=== PATIENT | female | born 1940 | race Caucasian/White ===

== ENCOUNTER 2023-03-26 11:11 | Outpatient (CLI) | payer MEDICARE, SELFPAY ==
[2023-03-26 19:26] LABS: Alanine Aminotransferase 23 U/L (6-35); Albumin Level 4.2 g/dL (3.5-5.1); Alkaline Phosphatase 125 U/L (38-126); Anion Gap 4 mmol/L (8-16); Aspartate Amino Transferase 38 U/L (14-36); Bilirubin,Total 0.4 mg/dL (0.2-1.3); Blood Urea Nitrogen 21 mg/dL (7-17); Calcium 9.6 mg/dL (8.4-10.2); Carbon Dioxide 32 mmol/L (22-30); Chloride 103 mmol/L (98-107); Estimated Glomerular Filt Rate 53; Glucose 89 mg/dL (65-110); Potassium 4.4 mmol/L (3.4-5.0); Sodium 139 mmol/L (137-145)
== END 2023-03-26 11:12 | disposition home or self-care (01) ==
LOC: ANHGOSHLAB 11:14
PROVIDERS: PCP Family Medicine; Visit Provider Family Medicine
DX: I12.9 Hypertensive chronic kidney disease with stage 1 through stage 4 chronic kidney disease, or unspecified chronic kidney disease (principal); N18.30 Chronic kidney disease, stage 3 unspecified
CPT/HCPCS: 36415; 80053

== ENCOUNTER 2023-08-31 11:04 | Outpatient (CLI) | payer MEDICARE, SELFPAY ==
[2023-08-31 19:06] LABS: Basophils Absolute Auto 0.1 K/mm3 (0.0-0.1); Basophils Percent Auto 0.7 % (0.2-1.2); Eosinophils Absolute Auto 0.2 K/mm3 (0-0.3); Hematocrit 46.6 % (37.0-47.0); Hemoglobin 14.4 g/dL (12.0-15.0); Immature Granulocyte Absolute 0.04 K/mm3 (0.00-0.031); Immature Granulocyte Percent A 0.4 % (0-0.5); Lymphocytes Percent Auto 22.1 % (18.3-44.2); Mean Corpuscular HGB Conc 30.9 g/dl (32-36); Mean Platelet Volume 12.3 fl (7.4-10.4); Monocytes Absolute Auto 0.8 K/mm3 (0.1-0.6); Monocytes Percent Auto 8.7 % (2.6-8.5); Neutrophils Absolute Auto 6.3 K/mm3 (1.3-6.7); Neutrophils Percent Auto 66.1 % (45.5-73.1); Platelet Count Result 209 k/mm3 (150-375); Red Blood Count 4.96 M/mm3 (4.2-5.4); Red Cell Distribution Width 15.2 % (11.5-14.5); White Blood Count 9.5 K/mm3 (4.5-10.0)
[2023-08-31 19:26] LABS: Alanine Aminotransferase 27 U/L (6-35); Albumin Level 4.5 g/dL (3.5-5.1); Alkaline Phosphatase 114 U/L (38-126); Anion Gap 5 mmol/L (8-16); Aspartate Amino Transferase 37 U/L (14-36); Blood Urea Nitrogen 25 mg/dL (7-17); Calcium 10.3 mg/dL (8.4-10.2); Carbon Dioxide 30 mmol/L (22-30); Chloride 103 mmol/L (98-107); Cholesterol 188 mg/dL (0-200); Estimated Glomerular Filt Rate 53; Glucose 86 mg/dL (65-110); HDL Direct 50 mg/dL; Potassium 4.9 mmol/L (3.4-5.0); Sodium 138 mmol/L (137-145); Triglycerides 119 mg/dL (<150)
[2023-08-31 19:28] LABS: Vitamin D 25 Hydroxy 43.8 ng/mL
[2023-08-31 19:37] LABS: LDL Cholesterol Direct 105 mg/dL
[2023-08-31 20:57] LABS: Vitamin B12 > 1000.0 pg/mL (239-931)
== END 2023-08-31 11:05 | disposition home or self-care (01) ==
LOC: ANHGOSHLAB 11:06
PROVIDERS: PCP Family Medicine; Visit Provider Family Medicine
DX: E55.9 Vitamin D deficiency, unspecified (principal); E78.5 Hyperlipidemia, unspecified; E53.8 Deficiency of other specified B group vitamins; I12.9 Hypertensive chronic kidney disease with stage 1 through stage 4 chronic kidney disease, or unspecified chronic kidney disease; N18.31 Chronic kidney disease, stage 3a
CPT/HCPCS: 36415; 80053; 80061; 82306; 82607; 84443; 85025

== ENCOUNTER 2024-03-03 11:22 | Outpatient (CLI) | payer MEDICARE, SELFPAY ==
--- NOTE | ~2024-03-03 | XR_ITS ---
Left foot Technique: AP, oblique, and lateral views were obtained. Clinical History: Hammertoe Findings: No acute fracture or dislocation is seen. Osseous alignment is anatomic. Joint spaces are p reserved without erosive or degenerative change. Soft tissues are unremarkable. Impression: Unremarkable left foot radiographs. Reviewed, dictated and finalized at [facility]. Impression: Unremarkable left foot radiographs.
== END 2024-03-03 11:23 | disposition home or self-care (01) ==
LOC: ANHIMG 11:23
PROVIDERS: PCP Family Medicine; Visit Provider Podiatrist Foot & Ankle Surgery
DX: M20.42 Other hammer toe(s) (acquired), left foot (principal)
CPT/HCPCS: 73630

== ENCOUNTER 2024-10-10 10:16 | Outpatient (CLI) | payer MEDICARE, SELFPAY ==
[2024-10-10 14:09] LABS: Basophils Absolute Auto 0.1 K/mm3 (0.0-0.1); Eosinophils Absolute Auto 0.2 K/mm3 (0-0.3); Eosinophils Percent Auto 2.2 % (0-4.4); Hemoglobin 14.2 g/dL (12.0-15.0); Immature Granulocyte Absolute 0.03 K/mm3 (0.00-0.031); Immature Granulocyte Percent A 0.4 % (0-0.5); Lymphocytes Absolute Auto 2.05 K/mm3 (0.9-3.2); Lymphocytes Percent Auto 24.8 % (18.3-44.2); Mean Corpuscular HGB Conc 31.6 g/dl (32-36); Mean Corpuscular Hemoglobin 29.4 pg (26-34); Mean Corpuscular Volume 93.2 fl (80-100); Mean Platelet Volume 11.3 fl (7.4-10.4); Monocytes Absolute Auto 0.8 K/mm3 (0.1-0.6); Monocytes Percent Auto 9.7 % (2.6-8.5); Neutrophils Absolute Auto 5.1 K/mm3 (1.3-6.7); Neutrophils Percent Auto 61.9 % (45.5-73.1); Platelet Count Result 232 k/mm3 (150-375); Red Blood Count 4.83 M/mm3 (4.2-5.4); Red Cell Distribution Width 14.6 % (11.5-14.5); White Blood Count 8.3 K/mm3 (4.5-10.0)
[2024-10-10 14:26] LABS: Vitamin D 25 Hydroxy 48.4 ng/mL
[2024-10-10 14:30] LABS: Hemoglobin A1C 6.1 % (<5.7)
[2024-10-10 15:06] LABS: Alanine Aminotransferase 18 U/L (6-35); Albumin Level 4.1 g/dL (3.5-5.1); Alkaline Phosphatase 113 U/L (38-126); Anion Gap 4 mmol/L (4-12); Aspartate Amino Transferase 60 U/L (14-36); Bilirubin,Total 0.9 mg/dL (0.2-1.3); Blood Urea Nitrogen 23 mg/dL (7-17); Calcium 10.2 mg/dL (8.4-10.2); Carbon Dioxide 30 mmol/L (22-30); Chloride 105 mmol/L (98-107); Cholesterol 187 mg/dL (0-200); Estimated Glomerular Filt Rate 43; Glucose 87 mg/dL (65-110); HDL Direct 46 mg/dL; Potassium 4.6 mmol/L (3.4-5.0); Sodium 139 mmol/L (137-145); Triglycerides 99 mg/dL (<150)
[2024-10-10 15:19] LABS: LDL Cholesterol Direct 96 mg/dL
== END 2024-10-10 10:17 | disposition home or self-care (01) ==
LOC: ANHGOSHLAB 10:17
PROVIDERS: PCP Family Medicine; Visit Provider Family Medicine
DX: E78.5 Hyperlipidemia, unspecified (principal); I12.9 Hypertensive chronic kidney disease with stage 1 through stage 4 chronic kidney disease, or unspecified chronic kidney disease; N18.30 Chronic kidney disease, stage 3 unspecified; E55.9 Vitamin D deficiency, unspecified; R73.03 Prediabetes; E53.8 Deficiency of other specified B group vitamins; Z13.29 Encounter for screening for other suspected endocrine disorder
CPT/HCPCS: 36415; 80053; 80061; 82306; 82607; 83036; 84443; 85025

== ENCOUNTER 2025-03-21 11:51 | Outpatient (CLI) | payer MEDICARE, SELFPAY ==
--- OUTSIDE RECORDS SUMMARY | 2025-03-21 11:56 | XMS_ITS | Encounter Summary ---
Author Organization [facility] Address [address] [place] [address] Care Team Providers Care Supervisor Machining Name Role Phone Lazaro Krishna MD Primary Care Provider [phone] Encounter Details Date Type Department Care Team (Late st Contact Info) Description 01/13/2023 Lab Requisition [facility] Derm[facility] [address] [id number] Nathaniel Du MD [address] [place] [address] Social History Tobacco Use Types Packs/Day Years Used Date Smoking Tobacco: Never Assessed Comments Unknown Sex and Gender Information Value Date Recorded Sex Assigned at Not on file Legal Sex Female 12:41 PM CDT Gender Identity Not on file Sexual Orientation Not on file documented as of this encounter Plan of Treatment Not on file documented as of this encounter Procedures Procedure Name Priority Date/Time Associated Diagnosis Comments DERMATOPATHOLOGY Routine 01/12/2023 3:33 AM BARLEY STEEPER documented in this encounter Results * DERMATOPATHOLOGY (01/12/2023 3:33 AM BARLEY STEEPER) Case Report Dermatopathology Report Case: [id number] Authorizing Provider: Nathaniel Du MD Collected: 01/12/2023 03:33 AM Ordering Location: [facility] Received: 01/13/2023 06:03 AM Pathologist: Marjorie Banuelos MD Specimens: A) - Skin, right jaw (ant) B) - Skin, right jaw (post) 5:24 PM [facility] Final Diagnosis Specimen A. SKIN, right jaw (ant): SOLAR LENTIGO (L81.4) (see microscopic description) Specimen B. SKIN, right jaw (post): SOLAR LENTIGO (L81.4) (see microscopic description) 3 5:[address] [facility] DERMATOPATHOLOGY LABORATORY Clinical History A: Lentigo vs LM Path#[id number] B: Lentigo vs LM Path#[id number] 3 5:[address] [facility] DERMATOPATHOLOGY LABORATORY Gross Description Specimen A: Received is one formalin filled container labeled with the patient's name and designated right jaw (ant). The specimen consists of a shave biopsy measuring 7x4x1 mm. Jar 0. Specimen B: Received is one formalin filled container labeled with the patient's name and designated right jaw (post). The specimen consists of a shave biopsy measuring 7x4x1 mm. Jar 0. 3 5:[address] [facility] DERMATOPATHOLOGY LABORATORY Microscopic Description Specimen A. 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 There is a slight increase in epidermal thickness with lentiginous buds of hyperpigmented keratinocytes. The number of melanocytes, highlighted by MART-1/Melan-A immunohistochemical staining, is only mildly increased. In the dermis, there is basophilic degeneration of elastic fibers. Specimen B. 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 There is a slight increase in epidermal thickness with lentiginous buds of hyperpigmented keratinocytes. The number of melanocytes, highlighted by MART-1/Melan-A immunohistochemical staining, is only mildly increased. In the dermis, there is basophilic degeneration of elastic fibers. 3 5:[address] [facility] DERMATOPATHOLOGY LABORATORY Disclaimer An external and internal positive and negative controls are appropriate for the histochemical, immunohistochemical and immunofluorescence stain(s) in this case (if any), except where stated explicitly. The performance characteristics of the stain(s) cited in this report were developed and its performance characteristic determined by the Dermatopathology Laboratory at [facility], directed by Dr. Clementine Kong. These tests need not be, and therefore are not, approved by the [place] Food and Drug Administration. The tests are used for clinical purposes. Billing Codes Specimen Charges Stain Charges 43323 77629 1 1 25364 04824 1 1 3 5:24 PM [facility] Embedded Images 3 5:24 PM [facility] Pathology/Cytology TISSUE SPECIMEN FROM SKIN / Unknown 01/12/2023 3:33 AM BARLEY STEEPER 01/13/2023 6:03 AM BARLEY STEEPER Miscellaneous samples (specimen) TISSUE SPECIMEN FROM SKIN / Unknown 01/12/2023 3:33 AM BARLEY STEEPER 01/13/2023 6:03 AM BARLEY STEEPER us Nathaniel Du MD LAB - PATHOLOGY/CYTOLOGY ORDER RAMON Final Result DERMATOPATHOLOGY LABORATORY [facility] - Department of Dermatology [facility] [address] [place] [address], [address] [phone] documented in this encounter Visit Diagnoses Not on filedocumented in this encounter Care Teams Supervisor Machining Relationship Specialty Start Date End Date Lazaro Krishna MD [address] [place] [address] [place] [address] PCP - General Family Medicine 08/28/17 documented as of this encounter
--- OUTSIDE RECORDS SUMMARY | 2025-03-21 11:56 | XMS_ITS | Continuity of Care Document ---
Author Organization [facility] Address [address] [place] [address] [address] [place] [address] Phone Care Team Providers Care Flakeboard Line Tender Name Role Phone Micah Sullivan DO Unavailable Unavailable Advance Directives Directive Yes / No Effective Date File Name No Information Encounters Encounter Description Practice Location Reason(s) For Visit Diagnoses Date Provider Providers Copied on Encounter [facility], [id number] [place] [address] [address], [place], [place], [id number], [place] tel:[phone] [facility] No Information Nate Cha. [address] [place], [address], [place]. tel: [phone] Family History Family Member Type Diagnosis Age At Onset No Information Payers Payer name Insurance type Covered republican ID Authoriza tion(s) No Information Social History Type Description Quantity Date Captured Comments Sex Female Smoking Status No Information Chief Complaint And Reason For Visit No Information Reason For Referral Reason For Referral No Information History Of Present Illness Encounter Date Complaint History Of Prese nt Illness No Information Functional Status Date Functional Assessmen t No Information Instructions Date Instruction Additional Infor mation No Information Assessments Type Assessment Date No Information Patient Care Teams Name Effective Dates (start - stop) Status Members No Information
--- OUTSIDE RECORDS SUMMARY | 2025-03-21 11:56 | XMS_ITS | Clinical Summary ---
Author Organization [facility] Address [address] [place]: Epic Prelude ADT [place] [address] Care Team Providers Care Finishing Supervisor Name Role Phone Unavailable Primary Care Provider Unavailabl e Immunizations Immunization Administration Dates Next Due (COMIRNATY)(12 YR UP) COVID- 19 VACCINE, MRNA, SPIKE PROTEIN, LNP, RINA(PF) 30 MCG/0.3 ML IM SUSP 08/17/2024 (SHINGRIX)(50 YRS UP) ZOSTER VACCINE RECOMBINANT, 0.5 ML, IM 02/16/2024,11/13/2023 INFLUENZA VACCINE HIGH DOSE QUADRIVALENT 65 YR UP PF IM 07/27/2023 INFLUENZA VACCINE HIGH DOSE TRIVALENT SPLIT VIRUS, (65 YR UP), 0.5ML (PF), IM 08/17/2024 Social History Tobacco Use Types Packs/Day Years Used Date Smoking Tobacco: Never Assessed Comments Unknown Sex and Gender Information Value Date Recorded Sex Assigned at Not on file Legal Sex Female 3:27 PM CDT Gender Identity Not on file Sexual Orientation Not on file Plan of Treatment Health Maintenance Due Date Last Done Comments DTAP/TDAP/TD VACCINES (1 - Tdap) 1958 PNEUMOCOCCAL VACCINE 50+ YEA RS (1 of 1 - PCV) 1989 OSTEOPOROSIS SCREENING 2004 RSV VACCINE (60+ or ) (1 - 1-dose 75+ series) 2014 COVID-19 Vaccine (2 - season) 02/15/202507/2024 ZOSTER VACCINE Completed 02/16/2024, 11/13/2023 INFLUENZA VACCINE Completed 08/17/2024, 07/27/2023 Insurance RX [employer] Medicare Part B RX [facility] [employer] Medicare Part D RX [facility] Medicare Part B
--- OUTSIDE RECORDS SUMMARY | 2025-03-21 11:56 | XMS_ITS | Clinical Summary ---
Author Organization [facility] [employer] Address [address] [place] [address] Care Team Providers Care Apparel Machinery Instructor Name Role Phone Lazaro Krishna MD Primary Care Provider [phone] Source Comments [facility] [employer],non-owned Affiliates and Associated Physician Practices is amultiple site organization consisting of ambulatory clinics and hospital sitesin [place], [place], [place] and [place]. This disclosure is being madepursuant to the Care Everywhere program and may not contain all information available regarding this patient. Last updated 18.[facility] [employer] Allergies No known active allergies Immunizations Immunization Administration Dates Next Due INFLUENZA VACCINE, HIGH-DOSE , QUADR. (FLUZONE HIGH-DOSE QUADRIVALENT; 65Y+), 0.7 ML ([id number]) 08/28/2017 Social History Tobacco Use Types Packs/Day Years Used Date Smoking Tobacco: Never Assessed Comments Unknown Sex and Gender Information Value Date Recorded Sex Assigned at Not on file Legal Sex Female 12:41 PM CDT Gender Identity Not on file Sexual Orientation Not on file Plan of Treatment Health Maintenance Due Date Last Done Comments BONE DENSITY TESTING 1940 MEDICARE AWV 12 MONTHS 1940 DTAP/TDAP/TD VACCINES (1 - Tdap) 1958 PNEUMOCOCCAL VACCINE 50+ (1 of 1 - PCV) 1989 ZOSTER VACCINE (1 of 2) 1989 Respiratory Syncytial Virus (RSV) Vaccine Pt: or over 60 yrs (1 - 1-dose 75+ series) 2014 COVID-19 VACCINE ( - 2023-2 5 season) 2024 DEPRESSION SCREENING 11/09/2024 INFLUENZA VACCINE (Season Ended) 2025 08/28/20 17 HEPATITIS B VACCINE Aged Out No longe r eligible based on patient's age to complete this topic HIB VACCINE Aged Out No longer eligi ble based on patient's age to complete this topic HPV VACCINE Aged Out No longer eligi ble based on patient's age to complete this topic MENINGOCOCCAL (Group B) VACC INE SHARED DECISION-MAKING Aged Out No longer eligibl e based on patient's age to complete this topic MENINGOCOCCAL GROUPS A/C/Y/W VACCINE Aged Out No longer eligible b ased on patient's age to complete this topic Insurance MEDICARE MEDICARE [facility] Care Teams Apparel Machinery Instructor Relationship Specialty Start Date End Date Lazaro Krishna MD [address] [place] [address] PCP - General Family Medicine 08/28/17
[2025-03-21 13:30] LABS: Alanine Aminotransferase 24 U/L (6-35); Albumin Level 4.3 g/dL (3.5-5.1); Alkaline Phosphatase 121 U/L (38-126); Anion Gap 8 mmol/L (4-12); Aspartate Amino Transferase 52 U/L (14-36); Bilirubin,Total 0.7 mg/dL (0.2-1.3); Blood Urea Nitrogen 41 mg/dL (7-17); Carbon Dioxide 29 mmol/L (22-30); Chloride 102 mmol/L (98-107); Estimated Glomerular Filt Rate 40; Glucose 104 mg/dL (65-110); Potassium 4.3 mmol/L (3.4-5.0); Sodium 139 mmol/L (137-145)
[2025-03-21 13:42] LABS: Hemoglobin A1C 5.8 % (<5.7)
== END 2025-03-21 11:52 | disposition home or self-care (01) ==
PROVIDERS: PCP Family Medicine; Visit Provider Family Medicine
DX: I10 Essential (primary) hypertension (principal); R73.03 Prediabetes
CPT/HCPCS: 36415; 80053; 83036

== ENCOUNTER 2025-07-11 17:33 | Inpatient (IN) | payer MEDICARE, SELFPAY ==
[2025-07-11] VITALS (42 sets, daily range): BP systolic 102–141; BP diastolic 57–93; PULSE 66–86; RESP 11–23; TEMP 36.4; O2SAT 90–100
--- NOTE | ~2025-07-11 | XR_ITS ---
XR chest 1V portable 07/11/2025 17:51 Indication: Weakness and dizziness Procedure: AP portable chest Comparison: No prior studies for comparison. Findings: There is a hiatal hernia. There are bilateral interstitial infiltrates, left greater than right. No pleural effusion or pneumothorax. No acute osseous abnormality. There is atherosclerosis of the aorta. Impression: 1: Bilateral interstitial infiltrates of the mid and lower lungs, left greater than right. Differential diagnosis includes mild edema and pneumonia. Reviewed, dictated and finalized at location O. Impression: 1: Bilateral interstitial infiltrates of the mid and lower lungs, left greater than right. Differential diagnosis includes mild edema and pneumonia.
--- NOTE | ~2025-07-11 | CT_ITS ---
EXAMINATION: CT brain wo con DATE: 07/11/2025 20:15 INDICATION: Headache TECHNIQUE: Computed tomography (CT) of the head was performed without intravenous contrast. The dose-length product was 605.33 mGy-cm. Automated exposure control and iterative reconstruction technique were employed. COMPARISON: None FINDINGS: Generalized atrophy. There are scattered mild periventricular and subcortical white matter changes, most likely related to small vessel ischemic disease (microangiopathy). Small chronic lacunar infarction body of the right caudate nucleus. No ventriculomegaly or midline shift. Basilar cisterns are patent. There is intracranial atherosclerosis. No acute infarction, hemorrhage, mass or mass effect. Small mucous retention cyst left maxillary sinus. Mastoids are pneumatized. No depressed skull fractures. IMPRESSION: 1. No acute intracranial abnormality. Reviewed, dictated and finalized at location O.
--- NOTE | ~2025-07-11 | CT_ITS ---
EXAMINATION: CTA chest PE protocol DATE: 07/11/2025 22:23 INDICATION: Dyspnea and dizziness TECHNIQUE: Computed tomography (CT) pulmonary angiogram of the chest was performed with 100 mL Omnipaque-350 intravenous contrast. Additional 3D reconstructions utilizing coronal maximum intensity projection (MIP) were performed. Automated exposure control and iterative reconstruction technique were employed. The dose-length product was 440.49 mGy-cm. COMPARISON: None FINDINGS: There are multiple pulmonary arterial filling defects including in the right upper lobar pulmonary artery extending to the anterior and posterior segmental bronchi in the right middle lobar pulmonary artery extending into both the medial and lateral segmental pulmonary arteries, in the right lower lobar and anterobasilar segment of pulmonary artery, in the inferior segmental pulmonary artery of the lingula and one of the subsegmental branch of the anterior basilar segment of the left lower lobe. There is compressive atelectasis at the medial aspect of the bilateral lower lobes along side the margins of a large sliding- type hiatal hernia which contains the majority the stomach. There is mild dependent atelectasis in the bilateral lower lobes. Mosaic attenuation throughout the remainder of the lungs seen only on one of the sequences of imaging which results from expiratory phase of imaging with subsegmental regions of more lucent air trapping related to small airway disease. No pleural effusion. Heart size is normal. No leftward bowing of the ventricular septum to suggest right heart strain. Atherosclerotic coronary artery calcification. No pericardial effusion. Thoracic aorta is normal in caliber with no dissection. Multinodular goiter with 1.6 cm hypodense left thyroid nodule. No pathologically enlarged thoracic lymphadenopathy. Parapelvic cysts in the left kidney. Moderate to severe thoracic and lower cervical spondylosis. IMPRESSION: 1. Multiple pulmonary emboli including an the right upper, middle and lower lobes, left lower lobe and lingula with moderate clot burden but without evident right heart strain. Per preliminary report by [employer] the findings were confirmed Verified receipt with VÍCTOR Fierro, Going to LOBITO Parnell at 07/12/2025 at 2:18 AM. 2. Large hiatal hernia. Reviewed, dictated and finalized at location A. IMPRESSION: 1. Multiple pulmonary emboli including an the right upper, middle and lower lob es, left lower lobe and lingula with moderate clot burden but without evident r ight heart strain. Per preliminary report by [employer] the findings were confirme d Verified receipt with ER clerk Fierro, Going to LOBITO Parnell at 07/12/2025 at 2:1 8 AM. 2. Large hiatal hernia.
--- NOTE | ~2025-07-11 | US_ITS ---
EXAMINATION: US venous doppler [facility] DATE: 07/12/2025 12:53 INDICATION: Pulmonary embolism TECHNIQUE: Grayscale ultrasound images without and with compression and Doppler ultrasound images of the bilateral lower extremity veins were obtained. COMPARISON: None. FINDINGS: The visualized portions of right common femoral vein, profunda (deep) femoral vein, femoral vein, popliteal vein, posterior tibial veins, peroneal veins, gastrocnemius vein and proximal to mid greater saphenous vein are patent. Small right Moreno's cyst measuring up to 2.6 cm in maximal length. The visualized portions of left common femoral vein, profunda (deep) femoral vein, femoral vein, popliteal vein, posterior tibial veins, peroneal veins, gastrocnemius vein and proximal to mid greater saphenous vein are patent. Small left Moreno's cyst measuring up to 2.7 cm in maximal length. IMPRESSION: 1. No deep venous thrombosis in either lower limb. 2. Small bilateral Moreno's cysts. Reviewed, dictated and finalized at location A.
--- NOTE | 2025-07-11 17:36 | ECG_ITS ---
Test Date: 2025-07-11 17:39:03 Measurements Intervals [place] Rate: 74 P: 0 WA: 0 QRS: 25 QRSD: 82 T: 32 QT: 366 QTc: 407 Interpretive Statements SINUS RHYTHM LOW QRS VOLTAGE IN PRECORDIAL LEADS [QRS DEFLECTION < 1.0 mV IN CHEST LEADS] NONSPECIFIC ST AND T-WAVE ABNORMALITY SON ABNORMAL ECG No previous ECG available for comparison Electronically Signed On 07-12-2025 11:06:57 CDT by Jose R Nicholson M.D.
[2025-07-11 18:15] LABS: Hematocrit 38.2 % (37.0-47.0); Hemoglobin 12.4 g/dL (12.0-15.0); Immature Granulocyte Percent A 0.5 % (0-0.5); Lymphocytes Absolute Auto 1.31 K/mm3 (0.9-3.2); Mean Corpuscular HGB Conc 32.5 g/dl (32-36); Mean Corpuscular Hemoglobin 29.5 pg (26-34); Mean Corpuscular Volume 91.0 fl (80-100); Nucleated Red Blood Cells Absolute Auto 0.000 K/mm3 (0.0-0.012); Nucleated Red Blood Cells Perc 0.0 % (0.0-0.2); Platelet Count Result 196 k/mm3 (150-375); Red Blood Count 4.20 M/mm3 (4.2-5.4); White Blood Count 16.4 K/mm3 (4.5-10.0)
[2025-07-11 18:25] LABS: Alanine Aminotransferase 22 U/L (6-35); Albumin Level 3.9 g/dL (3.5-5.1); Alkaline Phosphatase 127 U/L (38-126); Anion Gap 8 mmol/L (4-12); Aspartate Amino Transferase 29 U/L (14-36); Bilirubin,Total 0.4 mg/dL (0.2-1.3); Blood Urea Nitrogen 37 mg/dL (7-17); Calcium 10.2 mg/dL (8.4-10.2); Carbon Dioxide 23 mmol/L (22-30); Chloride 108 mmol/L (98-107); Estimated CRCL calculation 28 ml/min; Estimated Glomerular Filt Rate 33; Glucose 177 mg/dL (65-110); Potassium 4.4 mmol/L (3.4-5.0); Sodium 139 mmol/L (137-145); Total Protein 7.1 g/dL (6.3-8.2)
--- NOTE | 2025-07-11 18:34 | ED_ITS ---
HPI - Dizziness General Chief Complaint: Dizziness <Wendy Myers PA-C - Last Filed: 07/12/25 01:56> Stated Complaint: dizzy <Wendy Myers PA-C - Last Filed: 07/12/25 01:56> Time Seen by Provider: 07/11/25 18:19 <Wendy Myers PA-C - Last Filed: 07/12/25 01:56> History of Present Illness HPI Narrative: 84-year-old female with history of CKD, hypertension, dyslipidemia, anxiety presents to the emergency department via EMS with son and grandson at bedside for dizziness, headache, generalized weakness, malaise, nausea and vomiting that started this afternoon. Patient states she woke up in her normal state of health. She went to lunch with her friends and shortly after lunch around 1:00 p.m. started to become nauseous. She states she then developed a frontal headache with associated vomiting, chills, malaise, weakness. She contacted her family called EMS and transported the patient to the ED. EMS reports blood pressure was low at 80/60 and blood sugar was 180. Patient states the headache is in the frontal aspect and feels like a ?sinus headache?. She states the dizziness is better when she is lying still and worse with sudden movements. She also reports a productive cough with sputum and some shortness of breath. She denies chest pain, lower extremity edema, abdominal pain, diarrhea, fever, is dysuria or hematuria. Denies history of VTE, hemoptysis, recent surgeries or hospitalizations. <Wendy Myers PA-C - Last Filed: 07/12/25 01:56> Related Data Home Medications: Home Medications ?Medication ?Instructions ?Recorded ?Confirmed ?Last Taken ?Type cholecalciferol (vitamin D3) 50 50 mcg PO DAILY 03/21/25 Unknown History mcg (2,000 unit) tablet cyanocobalamin (vitamin B-12) 1,000 mcg sublingual .QO D 03/21/25 03/21/25 Unknown History 1,000 mcg sublingual tablet <Wendy Myers PA-C - Last Filed: 07/12/25 01:56> Allergies/Adverse Reactions: Allergies Allergy/AdvReac Type Severity Reaction Status Date / Time No Known Allergies Allergy Unknown Verified 07/11/25 17:37 <Wendy Myers PA-C - Last Filed: 07/12/25 01:56> Review of Systems 2 Review of Systems: All systems reviewed & are unremarkable except as noted in HPI and below <Wendy Myers PA-C - Last Filed: 07/12/25 01:56> PMFSH Past Medical History Medical History: Medical History Prediabetes Rosacea, unspecified Vitamin B12 deficiency Anxiety Vitamin D deficiency CKD (chronic kidney disease) stage 3, GFR 30-59 ml/min Dyslipidemia Environmental allergies Essential (primary) hypertension <Wendy Myers PA-C - Last Filed: 07/12/25 01:56> Surgical History Surgical History: Surgical History History of tonsillectomy <Wendy Myers PA-C - Last Filed: 07/12/25 01:56> Family History Family History: Family History Father Hypertension Cerebrovascular accident Son Clogged artery (heart) <Wendy Myers PA-C - Last Filed: 07/12/25 01:56> Social History Social History: Social History Smoking status: Never smoker Second hand tobacco smoke exposure: No Alcohol intake: never Substance use: never Substance use type: does not use Lack of Transportation: No Lack of Food: Sometimes True Current Housing: I Have Housing Difficulty Paying Gas/Electric Bills: No Difficulty Paying for Meds: No Currently Unemployed: No Education: Associate Degree Difficulty w/ Childcare or Family Care: No Occupation/Education: retired <Wendy Myers PA-C - Last Filed: 07/12/25 01:56> Exam 2 Narrative: GENERAL: Well-appearing, well-nourished, and in no acute distress. HEAD: Normocephalic, atraumatic. EYES: PERRLA and EOMI. Unidirectional horizontal nystagmus ENT: Nares clear, no rhinorrhea or epistaxis. Mucous membranes moist. Left TM is gruber nonbulging with normal canal. Right TM with cerumen, TM is not visualized. NECK: Supple. CHEST: Clear to auscultation. No respiratory distress. HEART: Regular rate and rhythm. No murmur heard. Normal peripheral pulses. ABDOMEN: Soft, nontender, nondistended, normal active bowel sounds. No rebound, guarding rigidity. EXTREMITIES: Normal range of motion. No edema. Negative Homans bilaterally SKIN: Warm, dry, no rash. NEURO: No focal deficits. Alert and oriented x4. Cranial nerves 2-12 intact. Strength 5/5 in BUE and BLE. Sensation intact throughout. Normal [id number]. No pronator drift. <Wendy Myers PA-C - Last Filed: 07/12/25 01:56> Course LIP READING TEACHER/PA Physician Supervision This visit was performed by both a physician and an APC. I performed all aspects of the MDM as documented. <Rebel Neil MD - Last Filed: 07/12/25 02:27> Vital Signs Vital signs: Vital Signs Temperature 97.5 F L 07/11/25 17:28 Pulse Rate 75 07/11/25 17:28 Respiratory Rate 17 07/11/25 17:28 Blood Pressure 114/62 07/11/25 17:28 Pulse Oximetry 100 07/11/25 17:28 Oxygen Delivery Room Air 07/11/25 17:28 Temperature 97.5 F L 07/11/25 17:28 Pulse Rate 79 07/12/25 01:01 Respiratory Rate 19 07/12/25 01:01 Blood Pressure 115/76 07/12/25 01:01 Pulse Oximetry 98 07/11/25 23:46 Oxygen Delivery Room Air 07/11/25 17:28 <Wendy Myers PA-C - Last Filed: 07/12/25 01:56> Vital Signs Temperature 97.5 F L 07/11/25 17:28 Pulse Rate 75 07/11/25 17:28 Respiratory Rate 17 07/11/25 17:28 Blood Pressure 114/62 07/11/25 17:28 Pulse Oximetry 100 07/11/25 17:28 Oxygen Delivery Room Air 07/11/25 17:28 Temperature 97.5 F L 07/11/25 17:28 Pulse Rate 79 07/12/25 01:01 Respiratory Rate 19 07/12/25 01:01 Blood Pressure 115/76 07/12/25 01:01 Pulse Oximetry 98 07/11/25 23:46 Oxygen Delivery Room Air 07/11/25 17:28 <Rebel Neil MD - Last Filed: 07/12/25 02:27> MDM - Dizziness MDM Narrative Medical decision making narrative: 84-year-old female presents emergency department for dizziness, generalized weakness, malaise, chills, cough, nausea and vomiting that started around 1:00 p.m. today. See HPI for further history. Patient found to be hypotensive by EMS at 86/60 fluid in route. On arrival to the ED patient's vital signs are stable blood pressure 114/62. She is afebrile and nontoxic appearing. Exam is significant for the above. No focal neurologic deficits. CBC with leukocytosis of 16.4. Chemistries with mildly elevated creatinine of 1.51 BUN of 37, most recent creatinine in March 2025 was 1.27. ProBNP is within normal limits. UA indicative of UTI with 21-50 white blood cells and 2+ leuk esterase. Urine culture is pending. Viral swabs negative. EKG shows sinus rhythm with first-degree AV block, normal QRS duration, normal QTC, poor baseline, however no significant ST elevations or depressions. Troponin is undetectable. D-dimer elevated 1.97, therefore CTA chest PE obtained which does show a small thrombus in the right lower lobe in segmental branch. CT brain shows no acute intracranial findings. Patient and son at bedside updated on results. Patient received IV fluids and meclizine with improvement in her dizziness. Her blood pressures remained stable. She was started on heparin for PE and Rocephin for UTI. Plan to admit to the hospitalist for further evaluation and management. Patient and son are agreeable to this. Discussed case with hospitalist LIP READING TEACHER, Erica, who agrees to admission. <Wendy Myers PA-C - Last Filed: 07/12/25 01:56> Lab Data Result diagrams: 07/11/25 18:08 07/11/25 18:08 <Wendy Myers PA-C - Last Filed: 07/12/25 01:56> Labs: Lab Results 07/11/25 07/11/25 07/11/25 Range/Units 17:38 18:08 20:34 WBC 16.4 H (4.5-10.0) K/mm3 RBC 4.20 (4.2-5.4) M/mm3 Hgb 12.4 (12.0-15.0) g/dL Hct 38.2 (37.0-47.0) % MCV 91.0 (80-100) fl MCH 29.5 (26-34) pg MCHC 32.5 (32-36) g/dl RDW 14.2 (11.5-14.5) % Plt Count 196 (150-375) k/mm3 MPV 10.7 H (7.4-10.4) fl Immature Gran % (Auto) 0.5 (0-0.5) % Neut % (Auto) 84.5 H (45.5-73.1) % Lymph % (Auto) 8.0 L (18.3-44.2) % [place] % (Auto) 5.8 (2.6-8.5) % Eos % (Auto) 0.7 (0-4.4) % Baso % (Auto) 0.5 (0.2-1.2) % Lymph # (Auto) 1.31 (0.9-3.2) K/mm3 [place] # (Auto) 1.0 H (0.1-0.6) K/mm3 Eos # (Auto) 0.1 (0-0.3) K/mm3 Baso # (Auto) 0.1 (0.0-0.1) K/mm3 Abs Immat Gran (auto) 0.09 H (0.00-0.031) K/mm3 Absolute Neuts (auto) 13.9 H (1.3-6.7) K/mm3 Absolute Nucleated RBC 0.000 (0.0-0.012) K/mm3 Nucleated RBC % 0.0 (0.0-0.2) % PT (11.1-14.7) Seconds INR APTT (22.3-36.8) Seconds D-Dimer (<0.48) ug/mL Sodium 139 (137-145) mmol/L Potassium 4.4 (3.4-5.0) mmol/L Chloride 108 H (98-107) mmol/L Carbon Dioxide 23 (22-30) mmol/L Anion Gap 8 (4-12) mmol/L BUN 37 H (7-17) mg/dL Creatinine 1.51 H (0.7-1.0) mg/dL Estim Creat Clear Calc 28 ml/min Estimated GFR 33 L (59 - ) Glucose 177 H (65-110) mg/dL POC Capillary Glucose 159 H (65-105) mg/dl Lactic Acid (0.7-2.0) mmol/L Calcium 10.2 (8.4-10.2) mg/dL Magnesium 1.6 (1.6-2.3) mg/dL Total Bilirubin 0.4 (0.2-1.3) mg/dL AST 29 (14-36) U/L ALT 22 (6-35) U/L Alkaline Phosphatase 127 H (38-126) U/L Troponin I < 0.012 (0.000-0.034) ng/mL NT-Pro-B Natriuret Pep 141 H (19.9-100) pg/mL Total Protein 7.1 (6.3-8.2) g/dL Albumin 3.9 (3.5-5.1) g/dL Lipase 259 (23-300) U/L Urine Color Yellow (Yellow) Urine Appearance Clear (Clear) Urine pH 6.0 (5.0-9.0) Ur Specific [place] 1.018 (1.001-1.035) Urine Protein Negative (Negative) mg/dL Urine Glucose (UA) Trace H (Negative) mg/dL Urine Ketones Negative (Negative) mg/dL Ur Blood (Man) Negative (Negative) Urine Nitrate Negative (Negative) Urine Bilirubin Negative (Negative) Urine Urobilinogen 0.2 (<2.0) mg/dL Leukocyte Esterase Rfl 2+ H (Negative) ISABELLA/UL Urine RBC 0-2 (0-2) /hpf Urine WBC 21-50 H (0-3) /hpf Ur Squamous Epith Cells None seen (Few) /hpf Urine Bacteria None seen /hpf Urine Casts 3-5 Influenza A (RT-PCR) Negative (Negative) Influenza B (RT-PCR) Negative (Negative) RSV (RT-PCR) Negative (Negative) SARS-CoV-2 RNA (RT-PCR) Negative (Negative) 07/11/25 Range/Units 21:02 WBC (4.5-10.0) K/mm3 RBC (4.2-5.4) M/mm3 Hgb (12.0-15.0) g/dL Hct (37.0-47.0) % MCV (80-100) fl MCH (26-34) pg MCHC (32-36) g/dl RDW (11.5-14.5) % Plt Count (150-375) k/mm3 MPV (7.4-10.4) fl Immature Gran % (Auto) (0-0.5) % Neut % (Auto) (45.5-73.1) % Lymph % (Auto) (18.3-44.2) % [place] % (Auto) (2.6-8.5) % Eos % (Auto) (0-4.4) % Baso % (Auto) (0.2-1.2) % Lymph # (Auto) (0.9-3.2) K/mm3 [place] # (Auto) (0.1-0.6) K/mm3 Eos # (Auto) (0-0.3) K/mm3 Baso # (Auto) (0.0-0.1) K/mm3 Abs Immat Gran (auto) (0.00-0.031) K/mm3 Absolute Neuts (auto) (1.3-6.7) K/mm3 Absolute Nucleated RBC (0.0-0.012) K/mm3 Nucleated RBC % (0.0-0.2) % PT 14.2 (11.1-14.7) Seconds INR 1.1 APTT 31.8 (22.3-36.8) Seconds D-Dimer 1.97 H (<0.48) ug/mL Sodium (137-145) mmol/L Potassium (3.4-5.0) mmol/L Chloride (98-107) mmol/L Carbon Dioxide (22-30) mmol/L Anion Gap (4-12) mmol/L BUN (7-17) mg/dL Creatinine (0.7-1.0) mg/dL Estim Creat Clear Calc ml/min Estimated GFR (59 - ) Glucose (65-110) mg/dL POC Capillary Glucose (65-105) mg/dl Lactic Acid 1.1 (0.7-2.0) mmol/L Calcium (8.4-10.2) mg/dL Magnesium (1.6-2.3) mg/dL Total Bilirubin (0.2-1.3) mg/dL AST (14-36) U/L ALT (6-35) U/L Alkaline Phosphatase (38-126) U/L Troponin I (0.000-0.034) ng/mL NT-Pro-B Natriuret Pep (19.9-100) pg/mL Total Protein (6.3-8.2) g/dL Albumin (3.5-5.1) g/dL Lipase (23-300) U/L Urine Color (Yellow) Urine Appearance (Clear) Urine pH (5.0-9.0) Ur Specific [place] (1.001-1.035) Urine Protein (Negative) mg/dL Urine Glucose (UA) (Negative) mg/dL Urine Ketones (Negative) mg/dL Ur Blood (Man) (Negative) Urine Nitrate (Negative) Urine Bilirubin (Negative) Urine Urobilinogen (<2.0) mg/dL Leukocyte Esterase Rfl (Negative) ISABELLA/UL Urine RBC (0-2) /hpf Urine WBC (0-3) /hpf Ur Squamous Epith Cells (Few) /hpf Urine Bacteria /hpf Urine Casts Influenza A (RT-PCR) (Negative) Influenza B (RT-PCR) (Negative) RSV (RT-PCR) (Negative) SARS-CoV-2 RNA (RT-PCR) (Negative) <Wendy Myers PA-C - Last Filed: 07/12/25 01:56> Lab Results 07/11/25 07/11/25 07/11/25 Range/Units 17:38 18:08 20:34 WBC 16.4 H (4.5-10.0) K/mm3 RBC 4.20 (4.2-5.4) M/mm3 Hgb 12.4 (12.0-15.0) g/dL Hct 38.2 (37.0-47.0) % MCV 91.0 (80-100) fl MCH 29.5 (26-34) pg MCHC 32.5 (32-36) g/dl RDW 14.2 (11.5-14.5) % Plt Count 196 (150-375) k/mm3 MPV 10.7 H (7.4-10.4) fl Immature Gran % (Auto) 0.5 (0-0.5) % Neut % (Auto) 84.5 H (45.5-73.1) % Lymph % (Auto) 8.0 L (18.3-44.2) % [place] % (Auto) 5.8 (2.6-8.5) % Eos % (Auto) 0.7 (0-4.4) % Baso % (Auto) 0.5 (0.2-1.2) % Lymph # (Auto) 1.31 (0.9-3.2) K/mm3 [place] # (Auto) 1.0 H (0.1-0.6) K/mm3 Eos # (Auto) 0.1 (0-0.3) K/mm3 Baso # (Auto) 0.1 (0.0-0.1) K/mm3 Abs Immat Gran (auto) 0.09 H (0.00-0.031) K/mm3 Absolute Neuts (auto) 13.9 H (1.3-6.7) K/mm3 Absolute Nucleated RBC 0.000 (0.0-0.012) K/mm3 Nucleated RBC % 0.0 (0.0-0.2) % PT (11.1-14.7) Seconds INR APTT (22.3-36.8) Seconds D-Dimer (<0.48) ug/mL Sodium 139 (137-145) mmol/L Potassium 4.4 (3.4-5.0) mmol/L Chloride 108 H (98-107) mmol/L Carbon Dioxide 23 (22-30) mmol/L Anion Gap 8 (4-12) mmol/L BUN 37 H (7-17) mg/dL Creatinine 1.51 H (0.7-1.0) mg/dL Estim Creat Clear Calc 28 ml/min Estimated GFR 33 L (59 - ) Glucose 177 H (65-110) mg/dL POC Capillary Glucose 159 H (65-105) mg/dl Lactic Acid (0.7-2.0) mmol/L Calcium 10.2 (8.4-10.2) mg/dL Magnesium 1.6 (1.6-2.3) mg/dL Total Bilirubin 0.4 (0.2-1.3) mg/dL AST 29 (14-36) U/L ALT 22 (6-35) U/L Alkaline Phosphatase 127 H (38-126) U/L Troponin I < 0.012 (0.000-0.034) ng/mL NT-Pro-B Natriuret Pep 141 H (19.9-100) pg/mL Total Protein 7.1 (6.3-8.2) g/dL Albumin 3.9 (3.5-5.1) g/dL Lipase 259 (23-300) U/L Urine Color Yellow (Yellow) Urine Appearance Clear (Clear) Urine pH 6.0 (5.0-9.0) Ur Specific [place] 1.018 (1.001-1.035) Urine Protein Negative (Negative) mg/dL Urine Glucose (UA) Trace H (Negative) mg/dL Urine Ketones Negative (Negative) mg/dL Ur Blood (Man) Negative (Negative) Urine Nitrate Negative (Negative) Urine Bilirubin Negative (Negative) Urine Urobilinogen 0.2 (<2.0) mg/dL Leukocyte Esterase Rfl 2+ H (Negative) ISABELLA/UL Urine RBC 0-2 (0-2) /hpf Urine WBC 21-50 H (0-3) /hpf Ur Squamous Epith Cells None seen (Few) /hpf Urine Bacteria None seen /hpf Urine Casts 3-5 Influenza A (RT-PCR) Negative (Negative) Influenza B (RT-PCR) Negative (Negative) RSV (RT-PCR) Negative (Negative) SARS-CoV-2 RNA (RT-PCR) Negative (Negative) 07/11/25 Range/Units 21:02 WBC (4.5-10.0) K/mm3 RBC (4.2-5.4) M/mm3 Hgb (12.0-15.0) g/dL Hct (37.0-47.0) % MCV (80-100) fl MCH (26-34) pg MCHC (32-36) g/dl RDW (11.5-14.5) % Plt Count (150-375) k/mm3 MPV (7.4-10.4) fl Immature Gran % (Auto) (0-0.5) % Neut % (Auto) (45.5-73.1) % Lymph % (Auto) (18.3-44.2) % [place] % (Auto) (2.6-8.5) % Eos % (Auto) (0-4.4) % Baso % (Auto) (0.2-1.2) % Lymph # (Auto) (0.9-3.2) K/mm3 [place] # (Auto) (0.1-0.6) K/mm3 Eos # (Auto) (0-0.3) K/mm3 Baso # (Auto) (0.0-0.1) K/mm3 Abs Immat Gran (auto) (0.00-0.031) K/mm3 Absolute Neuts (auto) (1.3-6.7) K/mm3 Absolute Nucleated RBC (0.0-0.012) K/mm3 Nucleated RBC % (0.0-0.2) % PT 14.2 (11.1-14.7) Seconds INR 1.1 APTT 31.8 (22.3-36.8) Seconds D-Dimer 1.97 H (<0.48) ug/mL Sodium (137-145) mmol/L Potassium (3.4-5.0) mmol/L Chloride (98-107) mmol/L Carbon Dioxide (22-30) mmol/L Anion Gap (4-12) mmol/L BUN (7-17) mg/dL Creatinine (0.7-1.0) mg/dL Estim Creat Clear Calc ml/min Estimated GFR (59 - ) Glucose (65-110) mg/dL POC Capillary Glucose (65-105) mg/dl Lactic Acid 1.1 (0.7-2.0) mmol/L Calcium (8.4-10.2) mg/dL Magnesium (1.6-2.3) mg/dL Total Bilirubin (0.2-1.3) mg/dL AST (14-36) U/L ALT (6-35) U/L Alkaline Phosphatase (38-126) U/L Troponin I (0.000-0.034) ng/mL NT-Pro-B Natriuret Pep (19.9-100) pg/mL Total Protein (6.3-8.2) g/dL Albumin (3.5-5.1) g/dL Lipase (23-300) U/L Urine Color (Yellow) Urine Appearance (Clear) Urine pH (5.0-9.0) Ur Specific [place] (1.001-1.035) Urine Protein (Negative) mg/dL Urine Glucose (UA) (Negative) mg/dL Urine Ketones (Negative) mg/dL Ur Blood (Man) (Negative) Urine Nitrate (Negative) Urine Bilirubin (Negative) Urine Urobilinogen (<2.0) mg/dL Leukocyte Esterase Rfl (Negative) ISABELLA/UL Urine RBC (0-2) /hpf Urine WBC (0-3) /hpf Ur Squamous Epith Cells (Few) /hpf Urine Bacteria /hpf Urine Casts Influenza A (RT-PCR) (Negative) Influenza B (RT-PCR) (Negative) RSV (RT-PCR) (Negative) SARS-CoV-2 RNA (RT-PCR) (Negative) <Rebel Neil MD - Last Filed: 07/12/25 02:27> Discharge Plan Discharge Clinical Impression: Pulmonary embolism Qualifiers: Pulmonary embolism type: single subsegmental (without acute cor pulmonale) Q ualified Code(s): I26.93 - Single subsegmental thrombotic pulmonary embolism without acute cor pulmonale UTI (urinary tract infection) Qualifiers: Urinary tract infection type: acute cystitis Hematuria presence: without hematuria Qualified Code(s): N30.00 - Acute cystitis without hematuria <Wedny Myers PA-C - Last Filed: 07/12/25 01:56> Patient Disposition: Still a Patient <Wendy Myers PA-C - Last Filed: 07/12/25 01:56> Condition: Stable <Wendy Myers PA-C - Last Filed: 07/12/25 01:56>
[2025-07-11] MEDS: SODIUM CHLORIDE 0.9% IV 1,000 ML 999 ML IV CONT (18:42)
[2025-07-11] MEDS: MECLIZINE HCL 25 MG TABLET PO (18:43)
--- NOTE | 2025-07-11 18:44 | PC.NURSE ---
Pt unable to provide urine sample at this time, declining straight cath. Fluids infusing.
[2025-07-11 20:47] LABS: Add Urine Microscopic? YES; Appearance Urine Clear (Clear); Glucose Urine UA Trace mg/dL (Negative); Leukocyte Esterase Ur 2+ LEU/UL (Negative); Nitrate Urine Negative (Negative); Specific Grav Ur 1.018 (1.001-1.035)
[2025-07-11 20:54] LABS: Lipase 259 U/L (23-300); Magnesium 1.6 mg/dL (1.6-2.3)
--- NOTE | 2025-07-11 20:56 | PC.NURSE ---
pt reminded again to keep arm straight. Pt states I dont like it, but i understand what you are saying.
[2025-07-11 21:05] LABS: NT Pro B Type Natriuretic Pept 141 pg/mL (19.9-100); Troponin I < 0.012 ng/mL (0.000-0.034)
[2025-07-11 21:15] LABS: Influenza A QL RT-PCR Negative (Negative); Influenza B QL RT-PCR Negative (Negative); RSV RNA, RT-PCR Negative (Negative); SARS-CoV-2 RNA PCR Negative (Negative)
[2025-07-11 21:19] LABS: INR 1.1; Prothrombin Time 14.2 Seconds (11.1-14.7)
[2025-07-11 21:20] LABS: Partial Thromboplastin Time 31.8 Seconds (22.3-36.8)
[2025-07-12] VITALS (18 sets, daily range): BP systolic 106–130; BP diastolic 55–76; PULSE 63–92; RESP 16–20; TEMP 36.6–37.3; O2SAT 94–100; BMI 28.7
[2025-07-12] MEDS: HEPARIN SOD/D5W 100 UNITS/ML 25,000 UNITS/250 ML BAG 13 UNITS IV CONT (02:09)
--- NOTE | 2025-07-12 02:37 | PC.NURSE ---
phlebotomy is at bedside.
[2025-07-12 02:54] LABS: Hematocrit 39.6 % (37.0-47.0); Hemoglobin 12.3 g/dL (12.0-15.0); Immature Granulocyte Percent A 0.4 % (0-0.5); Lymphocytes Absolute Auto 1.89 K/mm3 (0.9-3.2); Mean Corpuscular HGB Conc 31.1 g/dl (32-36); Mean Corpuscular Hemoglobin 29.1 pg (26-34); Mean Corpuscular Volume 93.8 fl (80-100); Nucleated Red Blood Cells Absolute Auto 0.000 K/mm3 (0.0-0.012); Nucleated Red Blood Cells Perc 0.0 % (0.0-0.2); Platelet Count Result 181 k/mm3 (150-375); Red Blood Count 4.22 M/mm3 (4.2-5.4); White Blood Count 13.0 K/mm3 (4.5-10.0)
[2025-07-12] MEDS: cefTRIAXone 1 GM in SODIUM CHLORIDE 0.9% IV 50 ML 100 ML IVPB (02:55)
--- NOTE | 2025-07-12 04:01 | ADMIMU ---
This patient, Erica Brody, was admitted to IMU status, and placed in IMU Room 206-01. Patient/family oriented to hospital policies and general routines including ID bracelet, bed and alarms, visiting hours, pain management, procedures, bathroom and other care routines, personal items, smoking policy, room service/diet, and visiting hours. Valuables list has been completed. Information on how to activate the Rapid Response Team has been discussed. Patient/Family are encouraged to report perceived risks to care and to ask questions if they do not understand what they are told or what they should do.
--- NOTE | 2025-07-12 07:16 | PM.IMHP ---
H&P: HPI History of Present Illness Date/Time: 07/12/25 07:16 Chief Complaint: Dizziness Narrative: This is an 84-year-old female patient with a past medical history of hypertension, chronic kidney disease, dyslipidemia and anxiety. The patient presented to the emergency room via EMS with complaints of generalized weakness, malaise, nausea and vomiting that started this afternoon. She also had a frontal headache with vomiting, chills, malaise and weakness. Her family was with her in the emergency room. EMS reported that her blood pressure was low at 80/60 and her blood sugar was 180. She denies any nausea, vomiting, diarrhea, fever or dysuria. The patient stated that her dizziness is worse with motion and she feels better when she is lying flat. She denies any shortness of breath or chest pain. She denies any prior history any DVTs or PEs. She denies any recent travel or any edema in her lower extremities. She denies any calf pain. Under Hematology her abnormals include white count of 13 0 neutrophil percentage 78, and lymphs percentage 14.5. Patient's D-dimer was noted to be 1.97. Abnormal moles on her chemistry her BUN is 37 creatinine 1.50 (with a baseline creatinine between 1.07 and 1.27) her estimated GFR 33 (with a baseline 40-53. ) Her point of care glucose was 177 and then 159. Viral serology was negative. Head CT was read per Radiology as no acute intracranial abnormality. Chest x-ray was read. Radiology is bilateral interstitial infiltrates of the mid and lower lungs. Left greater than right. Differential diagnosis includes mild edema and pneumonia. CTA chest PE was read as small thrombus in the right lower lobe segmental branch. Patient seen her and had 2+ leukocytes in urine wbc's 21-50. Patient any urinary symptoms. Urine cultures have been obtained. The patient was given a dose of ceftriaxone in the emergency room. Patient's heart rate varied from 63-77. Her pulse oximetry has been 94-99%. The patient has pain minute to IMU observation on the service of 07/12/2025. Review of Systems Constitutional: Constitutional: Reports as per HPI and Reports no additional constitutional complaints Eyes: Eyes: Reports as per HPI and Reports no additional eye complaints ENT: Reports system reviewed and no additional complaints, except as documented and Reports Normal hearing present Cardiovascular: Cardiovascular: Reports no additional cardiovascular complaints Respiratory: Respiratory: Reports as per HPI and Reports no additional respiratory complaints Gastrointestinal: Gastrointestinal: Reports as per HPI and Reports no additional gastrointestinal complaints Genitourinary: Genitourinary: Reports no additional female genitourinary complaints Musculoskeletal: Musculoskeletal: Reports no additional musculoskeletal complaints Integumentary/Breasts: Skin/Breast: Reports system reviewed and no additional complaints, except as docu Neurologic: Reports system reviewed and no additional complaints, except as documented and Reports Normal hearing present Comments: Patient complained of dizziness Psychiatric: Psychiatric: Reports no additional psychiatric complaints and Reports as per HPI Hematologic/Lymphatic: Hematologic/Lymphatic: Reports no additional hematologic/lymphatic complaints Allergic/Immunologic: Allergic/Immunologic: Reports no additional allergic/immunologic complaints [facility] Past Medical History Medical History (Updated 07/12/25 @ 08:00 by Miriam Lawson PA-C) Pulmonary embolism Prediabetes Rosacea, unspecified Vitamin B12 deficiency Anxiety Vitamin D deficiency CKD (chronic kidney disease) stage 3, GFR 30-59 ml/min Dyslipidemia Environmental allergies Essential (primary) hypertension Surgical History Surgical History History of tonsillectomy Family History Family History Father Hypertension Cerebrovascular accident Son Clogged artery (heart) Social History Social History (Updated 07/12/25 @ 07:29 by Erica Weber APRN) Social History: She lives home alone, she is times 2, she has 2 children. she is retired. Code status full code Smoking status: Never smoker Second hand tobacco smoke exposure: No Alcohol intake: never Substance use: never Substance use type: does not use Lack of Transportation: No Lack of Food: Never True Current Housing: I Have Housing Concerned About Future Housing: No Difficulty Paying Gas/Electric Bills: No Difficulty Paying for Meds: No Currently Unemployed: No Education: Associate Degree Difficulty w/ Childcare or Family Care: No Occupation/Education: retired Spiritual care concerns: No Meds Home Medications and Allergies Home Medications ?Medication ?Instructions ?Recorded ?Confirmed ?Type cholecalciferol (vitamin D3) 50 50 mcg PO DAILY 09/27/24 07/12/25 History mcg (2,000 unit) tablet pravastatin 40 mg tablet 40 mg PO QHS #90 tabs 03/13/25 07/12/25 Rx cyanocobalamin (vitamin B-12) 1,000 mcg sublingual .QOD 03/21/25 07/12/25 History 1,000 mcg sublingual tablet lisinopril 20 1 tablet PO DAILY #90 tabs 03/27/25 07/12/25 Rx mg-hydrochlorothiazide 25 mg tablet hydroxyzine HCl 25 mg tablet 25 mg PO TID PRN anxiety #90 tabs 04/10/25 07/12/25 Rx amlodipine 5 mg tablet 5 mg PO DAILY #90 tabs 05/01/25 07/12/25 Rx psyllium husk 0.4 gram capsule 0.4 g PO QID 07/12/25 07/12/25 History (Metamucil) Allergies Allergy/AdvReac Type Severity Reaction Status Date / Time No Known Allergies Allergy Unknown Verified 07/11/25 17:37 Vital Signs Vital Signs - 24 hr 07/11/25 17:28 07/11/25 17:34 07/11/25 17:43 Temperature 97.5 F L Pulse Rate 75 77 79 Respiratory Rate 17 18 Blood Pressure 114/62 Pulse Oximetry 100 93 Oxygen Delivery Room Air 07/11/25 17:45 07/11/25 17:46 07/11/25 18:00 Temperature Pulse Rate 73 72 66 Respiratory Rate 11 L 16 11 L Blood Pressure 120/61 Pulse Oximetry 94 100 92 Oxygen Delivery 07/11/25 18:01 07/11/25 18:15 07/11/25 18:16 Temperature Pulse Rate 68 72 71 Respiratory Rate 15 17 18 Blood Pressure 114/58 L 108/57 L Pulse Oximetry 90 99 97 Oxygen Delivery 07/11/25 18:31 07/11/25 18:36 07/11/25 18:43 Temperature Pulse Rate 81 82 Respiratory Rate 22 H 15 Blood Pressure 119/71 119/71 Pulse Oximetry 95 95 Oxygen Delivery 07/11/25 18:45 07/11/25 18:46 07/11/25 19:00 Temperature Pulse Rate 85 83 80 Respiratory Rate 14 23 H 15 Blood Pressure 102/67 Pulse Oximetry 97 95 Oxygen Delivery 07/11/25 19:01 07/11/25 19:15 07/11/25 19:16 Temperature Pulse Rate 80 79 79 Respiratory Rate 20 15 20 Blood Pressure 116/59 L 113/63 Pulse Oximetry 96 93 95 Oxygen Delivery 07/11/25 19:30 07/11/25 19:31 07/11/25 19:45 Temperature Pulse Rate 84 80 84 Respiratory Rate 16 15 13 Blood Pressure 116/62 Pulse Oximetry 97 Oxygen Delivery 07/11/25 19:46 07/11/25 20:13 07/11/25 20:14 Temperature Pulse Rate 76 78 80 Respiratory Rate 13 17 14 Blood Pressure 112/62 124/67 Pulse Oximetry 97 97 98 Oxygen Delivery 07/11/25 20:15 07/11/25 20:16 07/11/25 20:30 Temperature Pulse Rate 83 84 83 Respiratory Rate 13 18 14 Blood Pressure 126/65 Pulse Oximetry 99 97 Oxygen Delivery 07/11/25 20:31 07/11/25 20:45 07/11/25 20:46 Temperature Pulse Rate 82 78 79 Respiratory Rate 18 16 15 Blood Pressure 141/93 H 128/66 Pulse Oximetry 97 99 97 Oxygen Delivery 07/11/25 20:47 07/11/25 21:00 07/11/25 21:01 Temperature Pulse Rate 78 86 85 Respiratory Rate 15 18 18 Blood Pressure 131/74 Pulse Oximetry 96 98 96 Oxygen Delivery 07/11/25 21:15 07/11/25 21:16 07/11/25 21:30 Temperature Pulse Rate 79 77 78 Respiratory Rate 17 20 13 Blood Pressure 118/67 Pulse Oximetry 99 97 99 Oxygen Delivery 07/11/25 21:31 07/11/25 21:45 07/11/25 21:46 Temperature Pulse Rate 77 81 81 Respiratory Rate 22 H 15 21 H Blood Pressure 110/61 120/64 Pulse Oximetry 99 98 98 Oxygen Delivery 07/11/25 23:01 07/11/25 23:36 07/11/25 23:46 Temperature Pulse Rate 76 76 78 Respiratory Rate 14 21 H 17 Blood Pressure 112/63 131/58 L 126/71 Pulse Oximetry 100 100 98 Oxygen Delivery 07/12/25 01:01 07/12/25 01:16 07/12/25 04:00 Temperature Pulse Rate 79 68 70 Respiratory Rate 19 20 Blood Pressure 115/76 117/68 Pulse Oximetry 94 Oxygen Delivery 07/12/25 04:00 07/12/25 06:00 Temperature 98.7 F Pulse Rate 77 63 Respiratory Rate 16 Blood Pressure 115/64 Pulse Oximetry 99 Oxygen Delivery Exam Const: General: cooperative, healthy appearing and tired appearing Nutritional Appearance: average body habitus and well nourished Orientation/consciousness: oriented to person, oriented to place, oriented to time and patient oriented x3 Limitations: no limitations HENMT: Head: normal to inspection, No palpable skull fracture present, normocephalic, atraumatic and abrasion Ears: hearing grossly normal bilaterally and external ears normal Face/Nose/Sinus: Normal external nose present, Normal nares present and No nasal polyps present Eyes: General: appearance normal, both eyes and all related structures Alignment and Position: alignment normal Periorbital: periorbital findings normal Eyelids: eyelids normal Conjunctivae: conjunctivae normal EOM: EOMs intact bilaterally Neck: Neck: normal visual inspection, full ROM, no lymphadenopathy, trachea midline and supple Carotids: normal carotid upstroke Lymphatic: no lymphadenopathy noted Chest: Chest palpation & inspection: normal inspection of the chest Resp: Effort & Inspection: normal respiratory effort Auscultation: clear to auscultation bilaterally Percussion: percussion normal Cardio: Palpation: normal PMI Rate: regular rate Rhythm: regular rhythm Heart sounds: S1 normal heart sound present and S2 normal heart sound present Peripheral pulses: Peripheral pulses 2+ throughout GI: Inspection: normal to inspection Percussion: Yes normal to percussion Auscultation: normal bowel sounds Rectal Exam: deferred : General: Yes no CVA tenderness Back/Spine/Pelvis: Back: no CVA tenderness Cervical Spine: cervical ROM normal Thoracic/Lumbar Spine: thoracic and lumbar spine normal to inspection Pelvis: no pain with anterior-posterior compression Skin: General skin exam: normal color Lesions: no lesions Rashes: no rashes Trauma: no lacerations or abrasions Wounds: no wounds Hair: normal Nails: normal Neuro: General: oriented to person, oriented to place, oriented to time and patient oriented x3 Cranial nerves: Yes Equal, round and reactive pupils present and Yes Normal hearing present Cognition (Neuro): normal cognition Sensory Exam: normal sensation Extrem: General: normal to inspection Psych: Appearance: grossly normal Mental Status: mental status grossly normal Speech and movement: Normal speech and movement present Affect: normal affect Attitude: cooperative Thought process: Normal thought process present Thought content: Yes Normal thought content present Insight: Good insight present (Psych) Judgement: Good judgement present (Psych) H&P: Results Labs Labs: Short CBC 07/11/25 07/12/25 Range/Units 18:08 02:50 WBC 16.4 H 13.0 H (4.5-10.0) K/mm3 Hgb 12.4 12.3 (12.0-15.0) g/dL Hct 38.2 39.6 (37.0-47.0) % Plt Count 196 181 (150-375) k/mm3 BMP 07/11/25 18:08 Sodium 139 Potassium 4.4 Chloride 108 H Carbon Dioxide 23 BUN 37 H Creatinine 1.51 H Glucose 177 H Calcium 10.2 Cardiac Enzymes 07/11/25 Range/Units 18:08 Troponin I < 0.012 (0.000-0.034) ng/mL Liver Function 07/11/25 Range/Units 18:08 Total Bilirubin 0.4 (0.2-1.3) mg/dL AST 29 (14-36) U/L ALT 22 (6-35) U/L Alkaline Phosphatase 127 H (38-126) U/L Albumin 3.9 (3.5-5.1) g/dL Urine 07/11/25 Range/Units 20:34 Urine Color Yellow (Yellow) Urine Appearance Clear (Clear) Urine pH 6.0 (5.0-9.0) Ur Specific [place] 1.018 (1.001-1.035) Urine Protein Negative (Negative) mg/dL Urine Glucose (UA) Trace H (Negative) mg/dL Assessment and Plan Assessment and plan (1) Pulmonary embolism: Qualifiers: Pulmonary embolism type: single subsegmental (without acute cor pulmonale) Qualified Code(s): I26.93 - Single subsegmental thrombotic pulmonary embolism without acute cor pulmonale Code(s): I26.99 - Other pulmonary embolism without acute cor pulmonale Status: Acute Assessment and Plan: -continue with heparin drip protocol. -an echo has been ordered. -bilateral venous Dopplers have been ordered. - (2) CKD (chronic kidney disease) stage 3, GFR 30-59 ml/min: Qualifiers: Chronic kidney disease stage 3 subtype: stage 3a (GFR 45-59) Qualified Code(s): N18.31 - Chronic kidney disease, stage 3a Code(s): N18.30 - Chronic kidney disease, stage 3 unspecified Status: Acute Assessment and Plan: -continue to renal functions. Patient's BUN and creatinine as well GFR slightly worse than her baseline. -hold any nephrotoxic medications. -for today i am going to hold her lisinopril with hydrochlorothiazide. (3) UTI (urinary tract infection): Qualifiers: Hematuria presence: without hematuria Urinary tract infection type: acute cystitis Qualified Code(s): N30.00 - Acute cystitis without hematuria Code(s): N39.0 - Urinary tract infection, site not specified Status: Acute Assessment and Plan: -urine culture and blood cultures are pending. -patient was started ceftriaxone in the emergency room. (4) Anxiety: Code(s): F41.9 - Anxiety disorder, unspecified Status: Acute Assessment and Plan: -p.r.n. Hydroxyzine ordered (5) Essential (primary) hypertension: Code(s): I10 - Essential (primary) hypertension Status: Acute Assessment and Plan: -today I am holding her lisinopril hydrochlorothiazide due to her acute on chronic renal failure. -p.r.n. hydralazine has been added.
--- NOTE | 2025-07-12 07:54 | PM.IMPN ---
Progress Note: A&P Assessment and Plan (1) Pneumonia: Code(s): J18.9 - Pneumonia, unspecified organism Status: Acute Assessment and Plan: CXR: Bilateral interstitial infiltrates of the mid and lower lungs, left greater than right. Differential diagnosis includes mild edema and pneumonia. - Complicating Factors: cocurrent PE - started on CAP tx: azithromycin ceftriaxone on 07/12 - Viral PCR: negative for Flu/COVID/RSV - blood cultures obtained on 07/12: pending - no supplemental O2 requirement - Monitor vital signs, I&Os, neuro status and patient is a fall risk - Follow WBC, serum electrolytes, temperature curves and cultures (2) Pulmonary embolism: Qualifiers: Pulmonary embolism type: single subsegmental (without acute cor pulmonale) Qualified Code(s): I26.93 - Single subsegmental thrombotic pulmonary embolism without acute cor pulmonale Code(s): I26.99 - Other pulmonary embolism without acute cor pulmonale Status: Acute Assessment and Plan: Chest CTA: Multiple pulmonary emboli including an the right upper, middle and lower lobes, left lower lobe and lingula with moderate clot burden but without evident right heart strain. Echocardiogram to rule out cardiac strain Bilateral venous dopplers negative Continue heparin drip per protocol, plan to transition to PO eliquis tomorrow Monitor for bloody bowel movements,chest pain,SOB or dizziness/lightheadedness Monitor vital signs, I&Os, shortness of breath and chest pain. Patient is a fall risk Monitor serum electrolytes, PTT, CBC, WBC, temperature curve and cultures. (3) UTI (urinary tract infection): Qualifiers: Hematuria presence: without hematuria Urinary tract infection type: acute cystitis Qualified Code(s): N30.00 - Acute cystitis without hematuria Code(s): N39.0 - Urinary tract infection, site not specified Status: Acute Assessment and Plan: - UA: clear appearance with trace glucose, negative nitrates, 2+ leukocytes, 21-50 WBC, no bacteria seen - UC obtained on 07/11: pending - No previous micro to be reviewed - started on rocephin on 07/12 Denies UTI like symptoms including dysuria, burning sensation, hematuria, and frequency/urgency (4) CKD (chronic kidney disease) stage 3, GFR 30-59 ml/min: Qualifiers: Chronic kidney disease stage 3 subtype: stage 3a (GFR 45-59) Qualified Code(s): N18.31 - Chronic kidney disease, stage 3a Code(s): N18.30 - Chronic kidney disease, stage 3 unspecified Status: Acute Assessment and Plan: Patient's BUN and creatinine as well GFR slightly worse than her baseline, baseline appears to be Cr 1.07-1.20. Cr currently 1.33. -continue to monitor renal functions. -hold any nephrotoxic medications. going to hold her lisinopril with hydrochlorothiazide for CLARISSE. blood pressures remain stable. - monitor I/O - renally dose medications (5) Essential (primary) hypertension: Code(s): I10 - Essential (primary) hypertension Status: Acute Assessment and Plan: -holding her lisinopril hydrochlorothiazide due to her acute on chronic renal failure. -p.r.n. hydralazine has been added. Time Spent With Patient Time with patient: 25 - 35 minutes Subjective Date/time seen: 07/12/25 07:54 Interval history: 84-year-old female patient with a past medical history of hypertension, chronic kidney disease, dyslipidemia and anxiety presented to the hospital with complaints of generalized weakness, malaise, nausea and vomiting. Patient is pleasant lying comfortably in bed. She has no complaints denying chest pain, palpitations, shortness of breath, nausea/vomiting and abdominal pain. Patient does note that she has occasional cough with productive phlegm but states this is normal around this time of year given her chronic allergies. Review of Systems Review of Systems: All systems reviewed & are unremarkable except as noted in HPI and below Exam Narrative: AF HR 67 RR 16 Spo2 100 BP 114/62 General: female in no acute respiratory distress who is nontoxic appearing, lying semi recumbent in bed. HEENT: Normocephalic. Atraumatic. Extraocular movement intact. Sclera clear and anicteric. No facial asymmetry. Chest: Lungs are clear to auscultation bilaterally. CV: Heart was regular rate and rhythm. Abd: Abdomen was soft. Nontender. Nondistended. Positive bowel sounds. Ext: No clubbing, cyanosis, or edema. DP pulses bilaterally. Neuro: Patient is alert and oriented x4. Speech is clear. Objective Data Vital Signs Vital Signs: Vital Signs - 24 hr 07/11/25 17:28 07/11/25 17:34 07/11/25 17:43 Temperature 97.5 F L Pulse Rate 75 77 79 Respiratory Rate 17 18 Blood Pressure 114/62 Pulse Oximetry 100 93 Oxygen Delivery Room Air 07/11/25 17:45 07/11/25 17:46 07/11/25 18:00 Temperature Pulse Rate 73 72 66 Respiratory Rate 11 L 16 11 L Blood Pressure 120/61 Pulse Oximetry 94 100 92 Oxygen Delivery 07/11/25 18:01 07/11/25 18:15 07/11/25 18:16 Temperature Pulse Rate 68 72 71 Respiratory Rate 15 17 18 Blood Pressure 114/58 L 108/57 L Pulse Oximetry 90 99 97 Oxygen Delivery 07/11/25 18:31 07/11/25 18:36 07/11/25 18:43 Temperature Pulse Rate 81 82 Respiratory Rate 22 H 15 Blood Pressure 119/71 119/71 Pulse Oximetry 95 95 Oxygen Delivery 07/11/25 18:45 07/11/25 18:46 07/11/25 19:00 Temperature Pulse Rate 85 83 80 Respiratory Rate 14 23 H 15 Blood Pressure 102/67 Pulse Oximetry 97 95 Oxygen Delivery 07/11/25 19:01 07/11/25 19:15 07/11/25 19:16 Temperature Pulse Rate 80 79 79 Respiratory Rate 20 15 20 Blood Pressure 116/59 L 113/63 Pulse Oximetry 96 93 95 Oxygen Delivery 07/11/25 19:30 07/11/25 19:31 07/11/25 19:45 Temperature Pulse Rate 84 80 84 Respiratory Rate 16 15 13 Blood Pressure 116/62 Pulse Oximetry 97 Oxygen Delivery 07/11/25 19:46 07/11/25 20:13 07/11/25 20:14 Temperature Pulse Rate 76 78 80 Respiratory Rate 13 17 14 Blood Pressure 112/62 124/67 Pulse Oximetry 97 97 98 Oxygen Delivery 07/11/25 20:15 07/11/25 20:16 07/11/25 20:30 Temperature Pulse Rate 83 84 83 Respiratory Rate 13 18 14 Blood Pressure 126/65 Pulse Oximetry 99 97 Oxygen Delivery 07/11/25 20:31 07/11/25 20:45 07/11/25 20:46 Temperature Pulse Rate 82 78 79 Respiratory Rate 18 16 15 Blood Pressure 141/93 H 128/66 Pulse Oximetry 97 99 97 Oxygen Delivery 07/11/25 20:47 07/11/25 21:00 07/11/25 21:01 Temperature Pulse Rate 78 86 85 Respiratory Rate 15 18 18 Blood Pressure 131/74 Pulse Oximetry 96 98 96 Oxygen Delivery 07/11/25 21:15 07/11/25 21:16 07/11/25 21:30 Temperature Pulse Rate 79 77 78 Respiratory Rate 17 20 13 Blood Pressure 118/67 Pulse Oximetry 99 97 99 Oxygen Delivery 07/11/25 21:31 07/11/25 21:45 07/11/25 21:46 Temperature Pulse Rate 77 81 81 Respiratory Rate 22 H 15 21 H Blood Pressure 110/61 120/64 Pulse Oximetry 99 98 98 Oxygen Delivery 07/11/25 23:01 07/11/25 23:36 07/11/25 23:46 Temperature Pulse Rate 76 76 78 Respiratory Rate 14 21 H 17 Blood Pressure 112/63 131/58 L 126/71 Pulse Oximetry 100 100 98 Oxygen Delivery 07/12/25 01:01 07/12/25 01:16 07/12/25 04:00 Temperature Pulse Rate 79 68 70 Respiratory Rate 19 20 Blood Pressure 115/76 117/68 Pulse Oximetry 94 Oxygen Delivery 07/12/25 04:00 07/12/25 06:00 Temperature 98.7 F Pulse Rate 77 63 Respiratory Rate 16 Blood Pressure 115/64 Pulse Oximetry 99 Oxygen Delivery Intake/Output Intake/Output: Intake & Output 07/09/25 07/10/25 07/11/25 07/12/25 23:59 23:59 23:59 23:59 Intake Total 1000 230 Balance 1000 230 Meds/Results Medications: Active Medications Generic Name Dose Route Start Last Admin Trade Name Freq PRN Reason Stop Dose Admin Amlodipine Besylate 5 mg 07/12/25 09:00 Amlodipine Besylate 5 Mg Tablet PO DAILY LORETTA Cyanocobalamin 1,000 mcg 07/12/25 09:00 Cyanocobalamin 1,000 Mcg Tablet BY MOUTH Q48HR LOR[place] Heparin Sodium (Porcine) 5,500 units 07/12/25 01:42 Heparin Sodium 5,000 Units/Ml Vial IV PUSH PRN PRN aPTT less than 55 seconds Heparin Sodium (Porcine) 3,000 units 07/12/25 01:42 Heparin Sodium 5,000 Units/Ml Vial IV PUSH PRN PRN aPTT 55 - 70 seconds Hydralazine HCl 10 mg 07/12/25 07:37 Hydralazine Hcl 20 Mg/Ml Vial IV PUSH Q8H PRN Blood Pressure - High Hydroxyzine HCl 25 mg 07/12/25 07:35 Hydroxyzine Hcl 25 Mg Tablet PO TID PRN anxiety Ceftriaxone Sodium 1 gm/ 50 mls @ 100 mls/hr 07/13/25 02:00 Sodium Chloride IVPB Q24H L[place] Heparin Sodium/Dextrose 25,000 units in 250 mls @ 13 mls/hr 07/12/25 01:45 07/12/25 02:09 Heparin Sodium/D5w 100 Units/Ml IV CONT 1,300 units/hr .[id number] L[place]ET[place] 13 mls/hr Protocol Administration 1,300 UNITS/HR Miscellaneous Information 1 each 07/12/25 00:01 Psyllium Husk Capsules Are Nonform, Okay To Use Psyllium Packets? XX 08/11/25 00:00 CLARIFY [facility] Non-Formulary Medication 0.4 gm 07/12/25 09:00 Psyllium Husk [Metamucil] PO 08/11/25 08:59 QID [facility] Perflutren Lipid Microsphere 0 ml 07/12/25 01:56 Perflutren Lipid Microspheres 1.5 Ml Vial Diluted To 10 Ml Total Volume IV PUSH 07/15/25 01:58 ONCE PRN adequate visualization Protocol Pravastatin Sodium 40 mg 07/12/25 21:00 Pravastatin Sodium 20 Mg Tablet PO QHS [facility] Vitamin D 50 mcg 07/12/25 09:00 Cholecalciferol (Vitamin D3) 25 Mcg (1,000 Units) Tablet PO DAILY [facility] Radiology Results: ITS Impressions Chest X-Ray 07/11/25 18:00 Impression: 1: Bilateral interstitial infiltrates of the mid and lower lungs, left greater than right. Differential diagnosis includes mild edema and pneumonia. Head CT 07/11/25 20:19 IMPRESSION: 1. No acute intracranial abnormality. Labs Labs: Laboratory Results - last 24 hr 07/11/25 07/11/25 07/11/25 17:38 18:08 20:34 WBC 16.4 H RBC 4.20 Hgb 12.4 Hct 38.2 MCV 91.0 MCH 29.5 MCHC 32.5 RDW 14.2 Plt Count 196 MPV 10.7 H Immature Gran % (Auto) 0.5 Neut % (Auto) 84.5 H Lymph % (Auto) 8.0 L [place] % (Auto) 5.8 Eos % (Auto) 0.7 Baso % (Auto) 0.5 Lymph # (Auto) 1.31 [place] # (Auto) 1.0 H Eos # (Auto) 0.1 Baso # (Auto) 0.1 Abs Immat Gran (auto) 0.09 H Absolute Neuts (auto) 13.9 H Absolute Nucleated RBC 0.000 Nucleated RBC % 0.0 PT INR APTT D-Dimer Sodium 139 Potassium 4.4 Chloride 108 H Carbon Dioxide 23 Anion Gap 8 BUN 37 H Creatinine 1.51 H Estim Creat Clear Calc 28 Estimated GFR 33 L Glucose 177 H POC Capillary Glucose 159 H Lactic Acid Calcium 10.2 Magnesium 1.6 Total Bilirubin 0.4 AST 29 ALT 22 Alkaline Phosphatase 127 H Troponin I < 0.012 NT-Pro-B Natriuret Pep 141 H Total Protein 7.1 Albumin 3.9 Lipase 259 Urine Color Yellow Urine Appearance Clear Urine pH 6.0 Ur Specific [place] 1.018 Urine Protein Negative Urine Glucose (UA) Trace H Urine Ketones Negative Ur Blood (Man) Negative Urine Nitrate Negative Urine Bilirubin Negative Urine Urobilinogen 0.2 Leukocyte Esterase Rfl 2+ H Urine RBC 0-2 Urine WBC 21-50 H Ur Squamous Epith Cells None seen Urine Bacteria None seen Urine Casts 3-5 Influenza A (RT-PCR) Negative Influenza B (RT-PCR) Negative RSV (RT-PCR) Negative SARS-CoV-2 RNA (RT-PCR) Negative 07/11/25 07/12/25 21:02 02:50 WBC 13.0 H RBC 4.22 Hgb 12.3 Hct 39.6 MCV 93.8 MCH 29.1 MCHC 31.1 L RDW 14.2 Plt Count 181 MPV 11.3 H Immature Gran % (Auto) 0.4 Neut % (Auto) 78.0 H Lymph % (Auto) 14.5 L [place] % (Auto) 6.2 Eos % (Auto) 0.4 Baso % (Auto) 0.5 Lymph # (Auto) 1.89 [place] # (Auto) 0.8 H Eos # (Auto) 0.1 Baso # (Auto) 0.1 Abs Immat Gran (auto) 0.05 H Absolute Neuts (auto) 10.1 H Absolute Nucleated RBC 0.000 Nucleated RBC % 0.0 PT 14.2 INR 1.1 APTT 31.8 D-Dimer 1.97 H Sodium Potassium Chloride Carbon Dioxide Anion Gap BUN Creatinine Estim Creat Clear Calc Estimated GFR Glucose POC Capillary Glucose Lactic Acid 1.1 Calcium Magnesium Total Bilirubin AST ALT Alkaline Phosphatase Troponin I NT-Pro-B Natriuret Pep Total Protein Albumin Lipase Urine Color Urine Appearance Urine pH Ur Specific [place] Urine Protein Urine Glucose (UA) Urine Ketones Ur Blood (Man) Urine Nitrate Urine Bilirubin Urine Urobilinogen Leukocyte Esterase Rfl Urine RBC Urine WBC Ur Squamous Epith Cells Urine Bacteria Urine Casts Influenza A (RT-PCR) Influenza B (RT-PCR) RSV (RT-PCR) SARS-CoV-2 RNA (RT-PCR) Quality VTE Prophylaxis VTE prophylaxis: pharmacologic ordered
[2025-07-12] MEDS: CYANOCOBALAMIN 1,000 MCG TABLET 1000 MCG BY MOUTH (08:09)
[2025-07-12] MEDS: CHOLECALCIFEROL (VITAMIN D3) 25 MCG (1,000 UNITS) TABLET 50 MCG PO (08:09)
[2025-07-12] MEDS: AZITHROMYCIN IV 500 MG in SODIUM CHLORIDE 0.9% IV 250 ML IVPB (08:21)
[2025-07-12 08:23] LABS: INR 1.2; Prothrombin Time 14.7 Seconds (11.1-14.7)
[2025-07-12 08:43] LABS: Alanine Aminotransferase 20 U/L (6-35); Albumin Level 3.5 g/dL (3.5-5.1); Alkaline Phosphatase 120 U/L (38-126); Anion Gap 5 mmol/L (4-12); Aspartate Amino Transferase 25 U/L (14-36); Bilirubin,Total 0.5 mg/dL (0.2-1.3); Blood Urea Nitrogen 29 mg/dL (7-17); Calcium 10.0 mg/dL (8.4-10.2); Carbon Dioxide 26 mmol/L (22-30); Chloride 107 mmol/L (98-107); Estimated CRCL calculation 31 ml/min; Estimated Glomerular Filt Rate 38; Glucose 130 mg/dL (65-110); Potassium 4.5 mmol/L (3.4-5.0); Sodium 138 mmol/L (137-145); Total Protein 6.5 g/dL (6.3-8.2)
[2025-07-12 08:47] LABS: Partial Thromboplastin Time > 200.0 Seconds (22.3-36.8)
--- NOTE | 2025-07-12 16:23 | PC.NURSE ---
On 07/12/25, the student, Ban, provided care and completed [facility] documentation on this patient. I have reviewed the student's documentation and agree with the findings.
[2025-07-12 16:57] LABS: Partial Thromboplastin Time 131.0 Seconds (22.3-36.8)
[2025-07-12] MEDS: PRAVASTATIN SODIUM 20 MG TABLET 40 MG PO (20:47)
[2025-07-12 23:14] LABS: Partial Thromboplastin Time 111.1 Seconds (22.3-36.8)
[2025-07-13] VITALS (10 sets, daily range): BP systolic 118–137; BP diastolic 64–72; PULSE 60–81; RESP 14–16; TEMP 36.6–36.8; O2SAT 96–100
[2025-07-13] MEDS: cefTRIAXone 1 GM in SODIUM CHLORIDE 0.9% IV 50 ML 100 ML IVPB (01:20)
[2025-07-13 05:18] LABS: Hematocrit 36.6 % (37.0-47.0); Hemoglobin 11.9 g/dL (12.0-15.0); Immature Granulocyte Percent A 0.6 % (0-0.5); Lymphocytes Absolute Auto 3.16 K/mm3 (0.9-3.2); Mean Corpuscular HGB Conc 32.5 g/dl (32-36); Mean Corpuscular Hemoglobin 29.6 pg (26-34); Mean Corpuscular Volume 91.0 fl (80-100); Nucleated Red Blood Cells Absolute Auto 0.000 K/mm3 (0.0-0.012); Nucleated Red Blood Cells Perc 0.0 % (0.0-0.2); Platelet Count Result 195 k/mm3 (150-375); Red Blood Count 4.02 M/mm3 (4.2-5.4); White Blood Count 10.9 K/mm3 (4.5-10.0)
[2025-07-13 05:35] LABS: Partial Thromboplastin Time 115.7 Seconds (22.3-36.8)
[2025-07-13 05:50] LABS: Alanine Aminotransferase 18 U/L (6-35); Albumin Level 3.4 g/dL (3.5-5.1); Alkaline Phosphatase 120 U/L (38-126); Anion Gap 5 mmol/L (4-12); Aspartate Amino Transferase 29 U/L (14-36); Bilirubin,Total 0.3 mg/dL (0.2-1.3); Blood Urea Nitrogen 23 mg/dL (7-17); Calcium 9.7 mg/dL (8.4-10.2); Carbon Dioxide 26 mmol/L (22-30); Chloride 106 mmol/L (98-107); Estimated CRCL calculation 33 ml/min; Estimated Glomerular Filt Rate 41; Glucose 93 mg/dL (65-110); Potassium 4.2 mmol/L (3.4-5.0); Sodium 137 mmol/L (137-145); Total Protein 6.2 g/dL (6.3-8.2)
--- NOTE | 2025-07-13 06:00 | ECHO_ITS ---
Patient Info Name: Erica Brody Age: 84 years : 1940 Gender: Female Ht: 67 in Wt: 183 lbs BSA: 2.00 m2 HR: 68 bpm BP: 118 / 67 mmHg Technical Quality: Good Exam Date: 07/13/2025 10:12 AM Patient Status: I Admit Date: 07/12/2025 Exam Type: CA echo doppler color flow Complete two-dimensional, color flow and Doppler transthoracic echocardiogram is performed. Staff Referring Physician: Erica Weber INTERNATIONAL FLIGHT ATTENDANT Fittings Finisher: Hermila Wallace Attending Provider: Arline Burch Summary 1. Complete two-dimensional, color flow and Doppler transthoracic echocardiogram is performed. 2. Left ventricular chamber dimension is normal. 3. Left ventricular systolic function is normal, estimated at 65-70. 4. There is mild concentric increased left ventricular wall thickness. 5. The left ventricular diastolic function is abnormal. 6. E/e' 18 is elevated. 7. There is moderate aortic valve sclerosis. 8. There is mild aortic valve stenosis with a peak velocity of 169 cm/s, mean gradient of 7 mmHg, and aortic valve area of 1.7 cm2. 9. No pulmonary hypertension, estimated pulmonary arterial systolic pressure is 25 mmHg. Left Ventricle E/e' 18 is elevated. Left ventricular chamber dimension is normal. Left ventricular systolic function is normal, estimated at 65-70. There is mild concentric increased left ventricular wall thickness. The left ventricular diastolic function is abnormal. Right Ventricle Right ventricular chamber dimension is normal. Right ventricular systolic function is normal and with normal TAPSE 2.4 cm. Left Atria Left atrial chamber dimension is normal. Right Atria Right atrial chamber dimension is normal. Aortic Valve The aortic valve is trileaflet. There is moderate aortic valve sclerosis. There is mild aortic valve stenosis with a peak velocity of 169 cm/s, mean gradient of 7 mmHg, and aortic valve area of 1.7 cm2. There is no aortic valve regurgitation. Pulmonic Valve There is no pulmonic regurgitation. Mitral Valve There is no mitral valve stenosis. There is no mitral valve regurgitation. Tricuspid Valve There is no tricuspid valve regurgitation. No pulmonary hypertension, estimated pulmonary arterial systolic pressure is 25 mmHg. Pericardium/Pleural There is no pericardial effusion. Inferior Vena Cava Normal inferior vena cava with >50% collapse upon inspiration consistent with normal right atrial pressure, 5 mmHg. Aorta The aortic root size at the sinus of Valsalva is normal. Left Ventricular Outflow Tract Name Value Normal LVOT 2D LVOT Diameter 1.7 cm LVOT Doppler LVOT Peak Velocity 126 cm/s LVOT Peak Gradient 6 mmHg LVOT Mean Gradient 4 mmHg LVOT VTI 29 cm LVOT VTI/AV VTI Ratio 0.7 LVOT Stroke Volume 66 ml LVOT CO 13.6 l/min LVOT CI 6.8 l/min/m2 Pulmonic Valve Name Value Normal PV Doppler PV Peak Velocity 103 cm/s PV Peak Gradient 4 mmHg Mitral Valve Name Value Normal MV Diastolic Function MV E Peak Velocity 120 cm/s MV A Peak Velocity 84 cm/s MV E/A 1.4 MV Decel Time (PW) 207 ms MV Annular TDI MV E/e' (Septal) 23.6 MV E/e' (Lateral) 14.8 MV E/e' (Average) 19.2 Tricuspid Valve Name Value Normal TV Regurgitation Doppler TR Peak Velocity 221 cm/s TR Peak Gradient 18 mmHg Estimated PAP/RSVP RA Pressure 5 mmHg <=5 PA Systolic Pressure 25 mmHg <36 RV Systolic Pressure 25 mmHg <36 TV Annular TDI TV Lateral Katya s' Velocity 17.5 cm/s >=9.5 Aorta Name Value Normal Ascending Aorta Ao Root Diameter (MM) 2.8 cm Ao Root Diam Index (MM) 1.4 cm/m2 Aortic Valve Name Value Normal AV Doppler AV Peak Velocity 169 cm/s AV Peak Gradient 11 mmHg AV Mean Gradient 7 mmHg AV VTI 40 cm AV Area (Cont Eq VTI) 1.7 cm2 >=3.0 AV Area (Cont Eq Deandre) 1.7 cm2 AV DI (Deandre) 0.75 AV Regurgitation 2D LVOT Area 2.3 cm2 Ventricles Name Value Normal LV Dimensions 2D/MM IVS Diastolic Thickness (2D) 1.2 cm 0.6-1.0 LVID Diastole (2D) 3.3 cm 3.8-5.2 LVIW Diastolic Thickness (2D) 0.8 cm 0.6-0.9 LVID Systole (2D) 1.9 cm 2.2-3.5 LVOT Diameter 1.7 cm LV Mass (2D Cubed) 101.00 g 67.00-162.00 LV Mass Index (2D Cubed) 50 g/m2 43-95 Relative Wall Thickness (2D) 0.51 <=0.42 LV Fractional Shortening/Ejection Fraction 2D/MM LV Fractional Shortening (2D) 41 % 27-45 LV EF (2D Teichjiez) 73 % LV Diastolic Volume (4C MOD) 55 ml LV EF (4C MOD) 68 % LV Diastolic Volume (2C MOD) 59 ml LV EF (2C MOD) 60 % LV Diastolic Volume (BP MOD) 58 ml 46-106 LV Diastolic Volume Index (BP MOD) 29 ml/m2 29-61 LV Systolic Volume (BP MOD) 22 ml 14-42 LV Systolic Volume Index (BP MOD) 11 ml/m2 8-24 LV EF (BP MOD) 63 % 54-74 LV Diastolic Length (4C) 6.3 cm LV Systolic Length (4C) 4.8 cm LV Stroke Volume (4C MOD) 37 ml Atria Name Value Normal LA Dimensions LA Volume (4C A-L) 56 ml LA Volume (BP A-L) 46 ml RA Dimensions RA Systolic Major Lenore Length (4C) 3.8 cm 2.2-2.8 RA Area (4C) 10.4 cm2 <=18.0 Report Signatures
[2025-07-13] MEDS: CHOLECALCIFEROL (VITAMIN D3) 25 MCG (1,000 UNITS) TABLET 50 MCG PO (09:46)
[2025-07-13] MEDS: AZITHROMYCIN IV 500 MG in SODIUM CHLORIDE 0.9% IV 250 ML IVPB (09:47)
[2025-07-13 13:00] LABS: Partial Thromboplastin Time 99.1 Seconds (22.3-36.8)
[2025-07-13] MEDS: HEPARIN SOD/D5W 100 UNITS/ML 25,000 UNITS/250 ML BAG 8 UNITS IV CONT (16:18)
[2025-07-13] MEDS: APIXABAN 5 MG TABLET 10 MG PO (16:19)
--- NOTE | 2025-07-13 16:24 | P.DS_ITS ---
DS: Admitting Diagnosis Discharge Date 07/13/25 Admitting Diagnosis Dizziness DS: Discharge Diagnosis Discharge Diagnosis (1) Pneumonia: Code(s): J18.9 - Pneumonia, unspecified organism Status: Acute (2) Pulmonary embolism: Qualifiers: Pulmonary embolism type: single subsegmental (without acute cor pulmonale) Qualified Code(s): I26.93 - Single subsegmental thrombotic pulmonary embolism without acute cor pulmonale Code(s): I26.99 - Other pulmonary embolism without acute cor pulmonale Status: Acute DS: Summary Hospital Course Hospital Course: This is an 84-year-old female patient with a past medical history of hypertension, chronic kidney disease, dyslipidemia and anxiety. The patient presented to the emergency room via EMS with complaints of generalized weakness, malaise, nausea and vomiting ER evaluation notable for CTA chest showed multiple pulm emboli and bilateral infiltrates. ECHO showed no right heart strain. Patient was started on Heparin infusion and today discharged on Eliquis, discontinued with patient that she needs to be on anticoagulation for at least 3 months, and encouraged her to follow up with PCP for close follow up. Also managed for pneumonia, blood culture still negative, discharged on 5 days of Cefdinir and Doxycycline. F/u with PCP in 3-5 days Time Spent with Patient Time attestation: Total time spent providing and/or coordinating discharge services: DS: Data Data Completed and Pending Labs on day of discharge: Labs from last 24 hours 07/13/25 07/13/25 07/12/25 12:27 04:59 22:50 WBC 10.9 H RBC 4.02 L Hgb 11.9 L Hct 36.6 L MCV 91.0 MCH 29.6 MCHC 32.5 RDW 14.4 Plt Count 195 MPV 10.9 H Immature Gran % (Auto) 0.6 H Neut % (Auto) 57.7 Lymph % (Auto) 29.0 [place] % (Auto) 8.0 Eos % (Auto) 4.0 Baso % (Auto) 0.7 Lymph # (Auto) 3.16 [place] # (Auto) 0.9 H Eos # (Auto) 0.4 H Baso # (Auto) 0.1 Abs Immat Gran (auto) 0.07 H Absolute Neuts (auto) 6.3 Absolute Nucleated RBC 0.000 Nucleated RBC % 0.0 APTT 99.1 H 115.7 H 111.1 H Sodium 137 Potassium 4.2 Chloride 106 Carbon Dioxide 26 Anion Gap 5 BUN 23 H Creatinine 1.24 H Estim Creat Clear Calc 33 Estimated GFR 41 L Glucose 93 Calcium 9.7 Total Bilirubin 0.3 AST 29 ALT 18 Alkaline Phosphatase 120 Total Protein 6.2 L Albumin 3.4 L 07/12/25 14:58 WBC RBC Hgb Hct MCV MCH MCHC RDW Plt Count MPV Immature Gran % (Auto) Neut % (Auto) Lymph % (Auto) [place] % (Auto) Eos % (Auto) Baso % (Auto) Lymph # (Auto) [place] # (Auto) Eos # (Auto) Baso # (Auto) Abs Immat Gran (auto) Absolute Neuts (auto) Absolute Nucleated RBC Nucleated RBC % APTT 131.0 H Sodium Potassium Chloride Carbon Dioxide Anion Gap BUN Creatinine Estim Creat Clear Calc Estimated GFR Glucose Calcium Total Bilirubin AST ALT Alkaline Phosphatase Total Protein Albumin Discharge Plan Discharge Attending physician on discharge: Arline Burch Consulting providers: Miriam Lawson Discharging Clinician: Arline Burch Anticipated Discharge Date/Time: 07/13/25 15:37 Patient Disposition: Home Activity: as tolerated Diet: as tolerated Patient Instructions: Antibiotic Form, Pulmonary Embolism (DC), Pulmonary Embolism (GEN), Blood Thinners (GEN) Patient Language: Korean Stand Alone Forms: General Discharge Information Follow-up/Referrals: Paula Lawson MD [Primary Care Provider, [facility]] Referral Note: F/u with PCP in 3-5 days Discharge Medications: [facility] DVT-PE Treat 30D Start 5 mg (74 tabs) tablets,dose pack See Rx Instructions .ROUTE .COMPLEX Qty: 74 0RF Rx Instructions: orally per package directions cefdinir 300 mg capsule 300 mg PO Q12H 5 Days Qty: 10 0RF doxycycline hyclate 100 mg tablet,delayed release (DR/EC) 100 mg PO BID 5 Days Qty: 10 0RF Continued cyanocobalamin (vitamin B-12) 1,000 mcg tablet, sublingual 1,000 mcg sublingual .QOD cholecalciferol (vitamin D3) 50 mcg (2,000 unit) tablet 50 mcg PO DAILY psyllium husk [Metamucil] 0.4 gram capsule 0.4 g PO QID pravastatin 40 mg tablet 40 mg PO QHS Qty: 90 1RF lisinopril-hydrochlorothiazide 20-25 mg tablet 1 tablet PO DAILY Qty: 90 1RF hydroxyzine HCl 25 mg tablet 25 mg PO TID PRN (Reason: anxiety) Qty: 90 1RF amlodipine 5 mg tablet 5 mg PO DAILY Qty: 90 0RF Date of admission: 07/12/25 10:49 Primary Care Provider: Paula Lawson Admitting Provider: Arline Burch Attending physician on admission: Arline Burch Condition: Stable
== END 2025-07-13 17:44 | disposition home or self-care (01) | DRG 175 ==
LOC: ANHED 07-12 01:55 → ANHIMU 07-12 02:17
PROVIDERS: Emergency Medicine; General Practice; Nurse Practitioner; Student in an Organized Health Care Education/Training Program; Admitting Provider Internal Medicine; Emergency Provider Physician Assistant; PCP Family Medicine; Visit Provider Internal Medicine
DX: I26.93 Single subsegmental thrombotic pulmonary embolism without acute cor pulmonale (principal); J18.9 Pneumonia, unspecified organism; N30.00 Acute cystitis without hematuria; I12.9 Hypertensive chronic kidney disease with stage 1 through stage 4 chronic kidney disease, or unspecified chronic kidney disease; E53.8 Deficiency of other specified B group vitamins; E55.9 Vitamin D deficiency, unspecified; E78.5 Hyperlipidemia, unspecified; F41.9 Anxiety disorder, unspecified; N18.31 Chronic kidney disease, stage 3a; Z79.01 Long term (current) use of anticoagulants; Z20.822 Contact with and (suspected) exposure to COVID-19
CPT/HCPCS: 36415; 70450; 71045; 71275; 80053; 81001; 82948; 83605; 83690; 83735; 83880; 84484; 85025; 85380; 85610; 85730; 87040; 87086; 87186; 87637; 93005; 93306; 93970; 96361; 96365; 96375; 99285; A9270; G0378; J0456; J0696; J1644; J7030; J7050; Q9967

== ENCOUNTER 2025-10-09 14:54 | Outpatient (CLI) | payer MEDICARE, SELFPAY ==
--- OUTSIDE RECORDS SUMMARY | 2025-10-09 15:43 | XMS_ITS | Clinical Summary ---
Author Organization [facility] Address [address] [place] [address] Care Team Providers Care Finisher Tailor Apprentice Name Role Phone Lazaro Krishna MD Primary Care Provider [phone] [facility],non-owned Affiliates and Associated Physician Practices is amultiple site organization consisting of ambulatory clinics and hospital sitesin [place] and [place]. This disclosure is being madepursuant to the Care Everywhere program and may not contain all information available regarding this patient. Last updated 18.[facility] Allergies No known active allergies Immunizations Immunization [...] yrs (1 - 1-dose 75+ series) 2014 DEPRESSION SCREENING 11/09/2024 COVID-19 VACCINE (1 - 2024-2 6 season) 2025 INFLUENZA VACCINE (#1) 2025 08/28/2017 HEPATITIS B VACCINE Aged Out No longe [...] to complete this topic Insurance MEDICARE MEDICARE [facility] Member Subscriber Plan / Payer (Ef fective 2010-Present) Name:Marcelo Crawford Relation to Subscriber:Self Name:MARCELO CRAWFORD Payer ID:[id number] ([facility]) Type:PPO Address: [facility] [id number] [place] [id number] Care Teams Finisher Tailor Apprentice Relationship Specialty Start Date End Date Lazaro Krishna MD [address] [place] [address] PCP - General Family Medicine 08/28/17
--- OUTSIDE RECORDS SUMMARY | 2025-10-09 15:43 | XMS_ITS | Encounter Summary ---
Author Organization [facility] Address [address] [place] [address] Care Team Providers Care Grocery Stock Clerk Name Role Phone Lazaro Krishna MD Primary Care Provider [phone] Encounter Details Date Type Department Care Team (Late st Contact Info) Description 01/13/2023 Lab Requisition [facility] DermPath Lab [address] [place] [id number] Nathaniel Du MD [address] [place] [address] Social History Tobacco Use Types Packs/Day Years [...] Diagnosis Comments DERMATOPATHOLOGY Routine 01/12/2023 3:33 AM FINANCIAL QUANTITATIVE ANALYST documented in this encounter Results * DERMATOPATHOLOGY (01/12/2023 3:33 AM FINANCIAL QUANTITATIVE ANALYST) Case Report Dermatopathology Report Case: [id number] Authorizing Provider: Nathaniel Du MD Collected: 01/12/2023 03:33 AM Ordering Location: [facility] Derm[facility] Lab Received: 01/13/2023 06:03 AM Pathologist: Marjorie Banuelos MD Specimens: A) - Skin, right jaw (ant) B) - Skin, right jaw (post) 3 5:24 PM [facility] DERMATOPATHOLOGY LABORATORY Final Diagnosis Specimen A. SKIN, right jaw (ant): SOLAR LENTIGO (L81.4) (see microscopic description) Specimen B. SKIN, right jaw (post): SOLAR LENTIGO (L81.4) (see microscopic description) 3 5:24 PM [facility] DERMATOPATHOLOGY LABORATORY at [address]24 FINANCIAL QUANTITATIVE ANALYST Clinical History A: Lentigo vs LM Path#[id number] B: Lentigo vs LM Path#[id number] 3 5:24 PM [facility] DERMATOPATHOLOGY LABORATORY Gross Description Specimen A: Received [...] 7x4x1 mm. Jar 0. 3 5:24 PM [facility] DERMATOPATHOLOGY LABORATORY Microscopic Description Specimen A. SKIN, [...] degeneration of elastic fibers. 3 5:24 PM [facility] DERMATOPATHOLOGY LABORATORY Disclaimer An external and internal positive and negative controls are appropriate for the histochemical, immunohistochemical and immunofluorescence stain(s) in this case (if any), except where stated explicitly. The performance characteristics of the stain(s) cited in this report were developed and its performance characteristic determined by the Dermatopathology Laboratory at [facility], directed by Dr. Clementine Kong. These tests need not be, and therefore are not, approved by the [place] Food and Drug Administration. The tests are used for clinical purposes. Billing Codes Specimen Charges Stain Charges 55998 [id number] 1 1 32920 55829 1 1 3 5:24 PM FINANCIAL QUANTITATIVE ANALYST DERMATOPATHOLOGY LABORATORY Embedded Images 3 5:24 PM FINANCIAL QUANTITATIVE ANALYST DERMATOPATHOLOGY LABORATORY Pathology/Cytology TISSUE SPECIMEN FROM SKIN / Unknown 01/12/2023 3:33 AM FINANCIAL QUANTITATIVE ANALYST 01/13/2023 6:03 AM FINANCIAL QUANTITATIVE ANALYST Miscellaneous samples (specimen) TISSUE SPECIMEN FROM SKIN / Unknown 01/12/2023 3:33 AM FINANCIAL QUANTITATIVE ANALYST 01/13/2023 6:03 AM FINANCIAL QUANTITATIVE ANALYST us Nathaniel Du MD LAB - PATHOLOGY/CYTOLOGY ORDER RAMON Final Result DERMATOPATHOLOGY LABORATORY [facility] - Department of Dermatology [facility] Medicine [address] [place] [address], [address] [phone] documented in this encounter Visit Diagnoses Not on filedocumented in this encounter Care Teams Grocery Stock Clerk Relationship Specialty Start Date End Date Lazaro Krishna MD [address] [place] [address] PCP - General Family Medicine 08/28/17 documented as of this encounter
--- OUTSIDE RECORDS SUMMARY | 2025-10-09 15:43 | XMS_ITS | Clinical Summary ---
Author Organization [facility] Address [address] [place]: Epic Prelude ADT [place] [phone] Care Team Providers Care Liner Machine Operator Helper Name Role Phone Unavailable Primary Care Provider Unavailabl e Encounters Date Type Department Care Team Description 09/06/2025 External Device Data ST[facility] ABSTRACTION Provider, Abstract 09/05/2025 External Device Data [facility] ABSTRACTION Provider, Abstract from Last 3 Months Immunizations Immunization Administration Dates Next Due (AREXVY)(60 YR UP) RSV, SENDY MBINANT, PROTEIN SUBUNIT RSVPREF, ADJUVANT RECONSTITUTED, 0.5 ML, PF 09/07/2025 (COMRINATY)(12YR UP) COVID-1 9 VACCINE, MRNA (PF)30 MCG/0.3 ML, IM SYRINGE 08/22/2025,08/17/2024 (SHINGRIX)(50 YRS UP) ZOSTER VACCINE RECOMBINANT, 0.5 ML, IM 02/16/2024,11/13/2023 INFLUENZA VACCINE HIGH DOSE QUADRIVALENT 65 YR UP PF IM 07/27/2023 INFLUENZA VACCINE HIGH DOSE TRIVALENT SPLIT VIRUS, (65 YR UP), 0.5ML (PF), IM 08/22/2025,08/17/2024 Social History Tobacco Use Types Packs/Day Years [...] 1 - PCV) 1989 OSTEOPOROSIS SCREENING 2004 COVID-19 Vaccine (3 - season) 2026, 08/17/2024 ZOSTER VACCINE Completed 02/16/2024, 11/13/2023 INFLUENZA VACCINE Completed 08/22/2025, , 07/27/2023 RSV VACCINE (60+ or ) Completed 09/07/2025 Insurance RX [employer] DATA Medicare Part B RX [employer]ERAPE[employer] Medicare Part D RX [employer] DATA Medicare Part B
[2025-10-09 19:31] LABS: Hematocrit 42.8 % (37.0-47.0); Hemoglobin 13.4 g/dL (12.0-15.0); Immature Granulocyte Percent A 0.5 % (0-0.5); Lymphocytes Absolute Auto 2.33 K/mm3 (0.9-3.2); Mean Corpuscular HGB Conc 31.3 g/dl (32-36); Mean Corpuscular Hemoglobin 29.6 pg (26-34); Mean Corpuscular Volume 94.5 fl (80-100); Nucleated Red Blood Cells Absolute Auto 0.000 K/mm3 (0.0-0.012); Nucleated Red Blood Cells Perc 0.0 % (0.0-0.2); Platelet Count Result 228 k/mm3 (150-375); Red Blood Count 4.53 M/mm3 (4.2-5.4); White Blood Count 12.8 K/mm3 (4.5-10.0)
[2025-10-09 19:55] LABS: Alanine Aminotransferase 20 U/L (6-35); Albumin Level 4.3 g/dL (3.5-5.1); Alkaline Phosphatase 134 U/L (38-126); Anion Gap 5 mmol/L (4-12); Aspartate Amino Transferase 34 U/L (14-36); Bilirubin,Total 0.6 mg/dL (0.2-1.3); Blood Urea Nitrogen 20 mg/dL (7-17); Calcium 10.5 mg/dL (8.4-10.2); Carbon Dioxide 30 mmol/L (22-30); Chloride 105 mmol/L (98-107); Cholesterol 197 mg/dL (0-200); Estimated Glomerular Filt Rate 47; Glucose 106 mg/dL (65-110); HDL Direct 54 mg/dL; Potassium 4.8 mmol/L (3.4-5.0); Sodium 140 mmol/L (137-145); Total Protein 7.9 g/dL (6.3-8.2); Triglycerides 111 mg/dL (<150)
[2025-10-09 20:59] LABS: Iron 42 ug/dL (37-170)
[2025-10-09 21:06] LABS: Vitamin B12 832.0 pg/mL (239-931)
[2025-10-09 21:09] LABS: Percent Iron Saturation 14 % (20-50)
[2025-10-09 21:35] LABS: Thyroid Stimulating Hormone Reflex 2.250 uIU/mL (0.465-4.68)
[2025-10-09 21:44] LABS: Ferritin 99.00 ng/mL (11.1-264)
[2025-10-09 21:51] LABS: Hemoglobin A1C 6.0 % (<5.7)
== END 2025-10-09 14:55 | disposition home or self-care (01) ==
LOC: ANHGOSHLAB 14:55
PROVIDERS: PCP Family Medicine; Visit Provider Family Medicine
DX: R73.03 Prediabetes (principal); I10 Essential (primary) hypertension; E55.9 Vitamin D deficiency, unspecified; E78.5 Hyperlipidemia, unspecified; D64.9 Anemia, unspecified
CPT/HCPCS: 36415; 80053; 80061; 82306; 82607; 82728; 82746; 83036; 83540; 83550; 84443; 85025